=== PATIENT | male | born 1975 | race Caucasian/White ===

== ENCOUNTER 2025-03-26 01:28 | Day surgery (SDC) | payer BC, SELFPAY ==
--- OUTSIDE RECORDS SUMMARY | 2024-01-25 08:30 | XMS_ITS ---
Author Organization [facility] Address [address] [place] [address] Care Team Providers Care Foaming Machine Operator Name Role Phone Clifton Vance MD Unavailable DR. Clifton Vance Unavailable [phone] REASON FOR VISIT Mitul Nicolasvip Encounters Encounter Location Date Provider Diagnosis [facility] [address] [place] [address] 01/25/2024 Clifton Vance Plan Of Treatment No Information Progress Notes * Brady GUZMANeDOB:1975 ( 49 yo M)Acc No.[id number]:01/25/2024 Patient: Ke Jacobs Provider: Nicola Vance MD :1975 A ge:48 Y S ex:Male Date:01/25/2024 Address: [address] [facility] Subjective: * Chief Complaints: * [facility]: [facility] Vitals:* 01/12/2022 BP: 118/72 mm Hg, HR: 50 /mi n, Oxygen sat %: 99 %, Wt: 169.20 lbs, Wt-k.75 kg, Ht: 72.00 in, Ht-cm: 182.88 cm, BMI: 22.95 Index Plan: * Procedure Codes: 9 9199 NO SHOW Billing Information: * Procedure Codes: 45455 NO SHOW. * Electronic signature of DR. Clifton Vance MD on 03/26/2025 at 01:32 AM SUPERVISOR SHRIMP POND Sign off status: Pending * Provider: Nicola Vance MD Date: 0 01/25/2024 Generated for Merari deal/Anthony/Marisabel on: 1 05/26/2024 01:32 AM SUPERVISOR SHRIMP POND
--- OUTSIDE RECORDS SUMMARY | 2024-07-18 01:30 | XMS_ITS ---
Author Organization [facility] Address [address] [place] [address] Care Team Providers Care Laboratory Scientist Name Role Phone Clifton Vance MD Unavailable DR. Clifton Vance Unavailable [phone] REASON FOR VISIT CPE Vital Signs Blood pressure systolic 118 mm Hg 07/19/19 25 Blood pressure diastolic 82 mm Hg 025 Heart Rate 74 /min 07/18/2024 Height 72.00 in 07/18/2024 Weight 179.80 lbs 07/18/2024 BMI 24.39 kg/m2 07/18/2024 Oximetry 100 % 07/18/2024 Height-cm 182.88 cm 07/18/2024 Weight-kg 81.56 kg 07/18/2024 Encounters Encounter Location Date Provider Diagnosis [facility] [address] [place] [address] 07/18/2024 Clifton Vance Encounter for genera l adult medical examination without abnormal findings Z00.00 and Body mass index (BMI) 24.0-24.9, adult Z68.24 Assessments Encounter Date Diagnosis (ICD Code) Assessment Notes Treatment Notes Treatment Clinical Notes Section Notes 07/18/2024 Encounter for general adult medical examination without abnormal findings (ICD-10 - Z00.00) 07/18/2024 Body mass index (BMI) 24.0-24.9, adult (ICD-10 - Z68.24) Plan Of Treatment No Information History and Physical Notes * HPI (History of Present Illness) Category Sub-Category Detail Notes Category Not es Migrated HPI preventive exam :: Men's preventive visit. Patient is on a healthy diet. The patient has weight gain of 5 pounds (2.27 kilograms). Marital status: . Concern(s)/Requests Detail: rt wrist pain issues with lifting. Relevant history is positive for alcohol use. Relevant history is negative for passive vaping exposure Progress Notes * Brittany GUZMANOB:1975 ( 49 yo M)Acc No.[id number]:07/18/2024 Progress Notes Patient: Ke Jacobs Provider: Nicola Vance MD :1975 A ge:48 Y S ex:Male Date:07/18/2024 Address:[address] [place] [address] Subjective: * Chief Complaints: * C PE * HPI: M igrated HPI: preventive exam:: Men's preventive visit. Patient is on a healthy diet. The patient has weight gain of 5 pounds (2.27 kilograms). Marital status: . Concern(s)/Requests Detail: rt wrist pain issues with lifting. Relevant history is positive for alcohol use. Relevant history is negative for passive vaping exposure. * ROS: R OS System :Cardio :Claudication and Edema. -Negative, ROS System :GI :Change in stool pattern and Diarrhea. -Negative, ROS System :Allergic/Immuno :Environmental allergies and Food allergies. - Negative, ROS System :Constitutional :Weight gain (Amount: 5.00 lbs. (2.27 kgs.)). - Positive, ROS System :Constitutional :Fatigue. -Negative, ROS System :MS :Joint pain, Rt wrist pain. -Positive, ROS System :Respiratory :Cough and Known TB exposure. -Negative, ROS System :Neuro :Extremity weakness and Numbness in extremity. -Negative, ROS System :Endocrine :Heat intolerance and Polydipsia. -Negative, ROS System :Eyes :Eye discharge. -Negative, ROS System :ENMT :Otalgia. -Negative. Objective: * Vitals: B P: 118/82 mm Hg, HR: 74 /min, Oxygen sat %: 100 %, Wt: 179.80 lbs, Wt-k.56 kg, Ht: 72.00 in, Ht-cm: 182.88 cm, BMI: 24.39 Index. Past Vitals:* 01/12/2022 BP: 118/72 mm Hg, HR: 50 /mi n, Oxygen sat %: 99 %, Wt: 169.20 lbs, Wt-k.75 kg, Ht: 72.00 in, Ht-cm: 182.88 cm, BMI: 22.95 Index Assessment: * Assessment: 1. E ncounter for general adult medical examination without abnormal findings - Z00.00 ? 2 . B melita mass index (BMI) 24.0-24.9, adult - Z68.24 S pecify :Src Diagnosis Name: Body mass index [BMI] 24.0-24.9, adult Billing Information: * Visit Code: 04115 Preventive Care Est Pt. Age 40-64. * Electronic signature of DR. Clifton Vance MD on 03/26/2025 at 01:31 AM RESEARCH AND DEVELOPMENT DIRECTOR Sign off status: Pending * Provider: Nicola Vance MD Date: 0 07/18/2024 Generated for Merari deal/Anthony/Claudiosmitting on: 05/26/2024 01:31 AM RESEARCH AND DEVELOPMENT DIRECTOR
--- OUTSIDE RECORDS SUMMARY | 2024-09-27 05:12 | XMS_ITS ---
Author Organization [facility] Address [address] [place] [address] Care Team Providers Care Secretary Board Of Commissioners Name Role Phone Clifton Vance MD Unavailable Unavailable Migration, Provider Unavailable Unavailable REASON FOR VISIT TelEnc Encounters Encounter Location Date Provider Diagnosis [facility] [address] [place] [address] 09/27/2024 Provider Migration Plan Of Treatment No Information Progress Notes * Brady GUZMANErikOB:1975 ( 49 yo M)Acc No.[id number]:09/27/2024 Patient: Ke DILLON :1975 A ge:48 Y S ex:Male [place], [address] Subjective: * Chief Complaints: * T elEnc Objective: Past Vitals:* 01/12/2022 BP: 118/72 mm Hg, HR: 50 /mi n, Oxygen sat %: 99 %, Wt: 169.20 lbs, Wt-k.75 kg, Ht: 72.00 in, Ht-cm: 182.88 cm, BMI: 22.95 Index * * Date:
--- OUTSIDE RECORDS SUMMARY | 2025-01-17 03:00 | XMS_ITS ---
Author Organization [facility] Address [address] [facility] [place] [address] Care Team Providers Care Medical Office Supervisor Name Role Phone Rajiv BOYD, Clifton Armenta Unavailable DR. Clifton Vance Unavailable [phone] REASON FOR VISIT Pre Wellness Exam Encounters Encounter Location Date Provider Diagnosis [facility] [address] [facility] [place] [address] 01/17/2025 Clifton Vance Plan Of Treatment No Information Progress Notes * Brady GUZMANeDOB:1975 ( 49 yo M)Acc No.[id number]:01/17/2025 Patient: Ke Jacobs Provider: Nicloa Vance MD :1975 A ge:49 Y S ex:Male Date:01/17/2025 Address:[address] [facility] Subjective: * Chief Complaints: * P re Wellness Exam Plan: * Procedure Codes: 9 9199 NO SHOW Billing Information: * Procedure Codes: 59104 NO SHOW. * Electronic signature of DR. Clifton Vance MD on 03/26/2025 at 01:31 AM CUSTOMER SERVICE CONSULTANT Sign off status: Pending * Provider: Nicola Vance MD Date: 0 01/17/2025 Generated for Printi ng/Faxing/eTransmitting on: 1 05/26/2024 01:31 AM CUSTOMER SERVICE CONSULTANT
--- OUTSIDE RECORDS SUMMARY | 2025-01-31 07:30 | XMS_ITS ---
Author Organization [facility] Address [address] [facility] [place] [address] Care Team Providers Care Medical Service Technician Name Role Phone Clifton Vance MD Unavailable DR. Clifton Vance Unavailable [phone] REASON FOR VISIT Mitul Nicolasvip Encounters Encounter Location Date Provider Diagnosis [facility] [address] [place] [address] 01/31/2025 Clifton Vance Plan Of Treatment No Information Progress Notes * Brady GUZMANeDOB:1975 ( 49 yo M)Acc No.[id number]:01/31/2025 Patient: Ke Jacobs Provider: Nicola Vance MD :1975 A ge:49 Y S ex:Male Date:01/31/2025 Address:[address] [facility] [id number] Subjective: * Chief Complaints: * Sukumar Ferrarop * Electronic signature of DR. Clifton Vacne MD on 03/26/2025 at 01:31 AM CARCASS TRIMMER Sign off status: Pending * Provider: Nicola Vance MD Date: 0 01/31/2025 Generated for Merari deal/Anthony/eTransmitting on: 1 05/26/2024 01:31 AM CARCASS TRIMMER
--- OUTSIDE RECORDS SUMMARY | 2025-02-19 04:00 | XMS_ITS ---
Author Organization [facility] Address [address] [facility] [facility] [place] [address] Care Team Providers Care Lime Filter Operator Name Role Phone Clifton Vance MD Unavailable DR. Clifton Vance Unavailable [phone] REASON FOR VISIT Mitul Nicolasvip Encounters Encounter Location Date Provider Diagnosis [facility] [address] [place] [address] 02/19/2025 Clifton Vance Plan Of Treatment No Information Progress Notes * Brady GUZMANeDOB:1975 ( 49 yo M)Acc No.[id number]:02/19/2025 Patient: Ke Jacobs Provider: Nicola Vance MD :1975 A ge:49 Y S ex:Male Date:02/19/2025 Address:[address] [facility] Subjective: * Chief Complaints: * Sukumar Ferrarop * Electronic signature of DR. Clifton Vance MD on 03/26/2025 at 01:31 AM DISTRIBUTOR OF DIRECTORIES Sign off status: Pending * Provider: Nicola Vance MD Date: Generated for Merari deal/Anthony/eTransmitting on: 05/26/2024 01:31 AM DISTRIBUTOR OF DIRECTORIES
--- OUTSIDE RECORDS SUMMARY | 2025-02-26 04:30 | XMS_ITS ---
Author Organization [facility] Address [address] [facility] [place] [address] Care Team Providers Care Rn Lpn Lvn Name Role Phone Clifton Vance MD Unavailable DR. Clifton Vance Unavailable [phone] REASON FOR VISIT Mitul Nicolasvip Encounters Encounter Location Date Provider Diagnosis [facility] [address] [place] [address] 02/26/2025 Clifton Vance Plan Of Treatment No Information Progress Notes * Brady GUZMANeDOB:1975 ( 49 yo M)Acc No.[id number]:02/26/2025 Patient: Ke Jacobs Provider: Nicola Vance MD :1975 A ge:49 Y S ex:Male Date:02/26/2025 Address: [address] [facility] Subjective: * Chief Complaints: * Sukumar Ferrarop * Electronic signature of DR. Clifton Vance MD on 03/26/2025 at 01:31 AM SERVICE DELIVERY CONSULTANT Sign off status: Pending * Provider: Nicola Vance MD Date: Generated for Merari deal/Anthony/eTransmitting on: 05/26/2024 01:31 AM SERVICE DELIVERY CONSULTANT
--- OUTSIDE RECORDS SUMMARY | 2025-02-27 03:00 | XMS_ITS ---
Author Organization [facility] Address [address] [place] [address] Care Team Providers Care Hydrodynamicist Name Role Phone Clifton Vance MD Unavailable DR. Clifton Vance Unavailable [phone] REASON FOR VISIT Mitul Nicolasvip Encounters Encounter Location Date Provider Diagnosis [facility] [address] [place] [address] 02/27/2025 Clifton Vance Plan Of Treatment No Information Progress Notes * Brady GUZMANeDOB:1975 ( 49 yo M)Acc No.[id number]:02/27/2025 Patient: Ke Jacobs Provider: Nicola Vance MD :1975 A ge:49 Y S ex:Male Date:02/27/2025 Address: [address] [facility] Subjective: * Chief Complaints: * Sukumar Ferrarop * Electronic signature of DR. Clifton Vance MD on 03/26/2025 at 01:30 AM ORTHOTICS PROSTHETICS TECHNICIAN Sign off status: Pending * Provider: Nicola Vance MD Date: Generated for Merari deal/Anthony/eTransmitting on: 05/26/2024 01:30 AM ORTHOTICS PROSTHETICS TECHNICIAN
--- OUTSIDE RECORDS SUMMARY | 2025-03-03 03:00 | XMS_ITS ---
Author Organization [facility] Address [address] [place] [address] Care Team Providers Care Butcher Name Role Phone Clifton Vance MD Unavailable Unavailable Migration, Provider Unavailable Unavailable REASON FOR VISIT EMR-Km Encounters Encounter Location Date Provider Diagnosis [facility] [address] [place] [address] 03/03/2025 Provider Migration Plan Of Treatment Medication Medication Name Sig Start Date Stop Date Notes Cephalexin 500 MG Capsule take 1 capsule by oral route every 6 hours Oral 04/18/2020 07/08/2020 Xanax 1 MG Tablet take 1 tablet by oral route 4 times every day as needed for anxiety Oral 06/22/2023 09/27/2024 called into [facility] miscellaneous medication ORAL MISCELL MISCELL acutane for acne ORAL 03/17/2018 *Reorder from [facility] for eRx and Interaction Alerts* Winlevi 1 % topical cream 1 % CREAM (G) apply by topical route 2 times every day a thin layer to the affected area(s) TOPICAL 12/12/2022 08/24/2023 *Reorder from [facility] for eRx and Interaction Alerts* levoFLOXacin 500 MG Tablet take 1 tablet by oral route every 24 hours Oral 07/27/2019 07/08/2020 Albuterol Sulfate HFA 108 (90 Base) MCG/ACT Aerosol Solution inhale 2 puff by inhalation route every 4 - 6 hours prn Inhalation 01/25/2024 04/06/2024 Zoloft 25 MG Tablet TAKE 1 TABLET BY MOUTH DAILY Oral 06/22/2023 05/26/2024 - Ref: [id number] Cyclobenzaprine HCl 10 MG Tablet take 1 tablet by ORAL route 3 times every day as needed for muscle spasms Oral 02/07/2016 03/17/2018 Doxycycline Monohydrate 100 MG Capsule take 1 capsule by ORAL route every day Oral 07/08/2020 12/26/2020 Progress Notes * Brittany GUZMANOB:1975 ( 49 yo M)Acc No.[id number]:03/03/2025 Patient: Ke DILLON :1975 A ge:49 Y S ex:Male Address:[address] [place], [place] [id number] * Refills Stop Cephalexin Capsule, 500 MG, Oral, 28, take 1 capsule by oral route every 6 hours Stop Xanax Tablet, 1 MG, Oral, 120, take 1 by Oral route 3 times every day and as needed Stop Xanax Tablet, 1 MG, Oral, 90, take 1 tablet by oral route 3 times every day Stop Xanax Tablet, 1 MG, Oral, 320, take 1 tablet by oral route 4 times every day as needed for anxiety Stop Xanax Tablet, 1 MG, Oral, 360, take 1 tablet by oral route 4 times every day as needed for anxiety Stop Zoloft Tablet, 25 MG, Oral, 90, TAKE 1 TABLET BY MOUTH EVERY DAY Stop Zoloft Tablet, 25 MG, Oral, 90, TAKE 1 TABLET BY MOUTH DAILY Stop Doxycycline Monohydrate Capsule, 100 MG, Oral, 30, take 1 capsule by ORAL route every day Stop Xanax Tablet, 1 MG, Oral, 120, take 1 by Oral route 3 times every day and as needed Stop Xanax Tablet, 1 MG, Oral, 270, take 1 by Oral route 3 times every day and as needed Stop Xanax Tablet, 1 MG, Oral, 270, take 1 by Oral route 3 times every day and as needed Stop Xanax Tablet, 1 MG, Oral, 270, take 1 tablet by oral route 3 times every day as needed for anxiety Stop Xanax Tablet, 1 MG, Oral, 270, take 1 tablet by oral route 3 times every day as needed for anxiety Stop Xanax Tablet, 1 MG, Oral, 270, take 1 tablet by oral route 3 times every day as needed for anxiety Stop Zoloft Tablet, 25 MG, Oral, 90, Take 1 tablet by mouth every day Stop Zoloft Tablet, 25 MG, Oral, 90, TAKE 1 TABLET BY MOUTH EVERY DAY Stop Zoloft Tablet, 25 MG, Oral, 90, TAKE 1 TABLET BY MOUTH DAILY Stop Xanax Tablet, 1 MG, Oral, 120, take 1 by Oral route 3 times every day and as needed Stop Xanax Tablet, 1 MG, Oral, 270, take 1 tablet by oral route 3 times every day as needed for anxiety Stop Xanax Tablet, 1 MG, Oral, 120, take 1 tablet by oral route 4 times every day Stop Zoloft Tablet, 25 MG, Oral, 90, TAKE 1 TABLET BY MOUTH DAILY Stop Zoloft Tablet, 25 MG, Oral, 90, TAKE 1 TABLET BY MOUTH DAILY Stop Zoloft Tablet, 25 MG, Oral, 90, TAKE 1 TABLET BY MOUTH DAILY Stop miscellaneous medication ORAL MISCELL MISCELL, ORAL, acutane for acne Stop Winlevi 1 % topical cream CREAM (G), 1 %, TOPICAL, 180, apply by topical route 2 times every day a thin layer to the affected area(s) Stop Xanax Tablet, 1 MG, Oral, 120, take 1 by Oral route 3 times every day and as needed Stop Xanax Tablet, 1 MG, Oral, 90, take 1 tablet by oral route 3 times every day Stop Xanax Tablet, 1 MG, Oral, 260, take 1 tablet by oral route 4 times every day Stop Xanax Tablet, 1 MG, Oral, 360, take 1 tablet by oral route 4 times every day as needed for anxiety Stop Xanax Tablet, 1 MG, Oral, 260, take 1 tablet by oral route 4 times every day Stop Zoloft Tablet, 25 MG, Oral, 90, TAKE 1 TABLET BY MOUTH EVERY DAY Stop Zoloft Tablet, 25 MG, Oral, 90, TAKE 1 TABLET BY MOUTH DAILY Stop Xanax Tablet, 1 MG, Oral, 90, take 1 by Oral route 3 times every day and as needed Stop Xanax Tablet, 1 MG, Oral, 270, take 1 by Oral route 3 times every day and as needed Stop Xanax Tablet, 1 MG, Oral, 270, take 1 by Oral route 3 times every day and as needed Stop Xanax Tablet, 1 MG, Oral, 270, take 1 tablet by oral route 3 times every day as needed Stop Xanax Tablet, 1 MG, Oral, 270, take 1 tablet by oral route 3 times every day as needed for anxiety Stop Xanax Tablet, 1 MG, Oral, 270, take 1 tablet by oral route 3 times every day as needed for anxiety Stop Zoloft Tablet, 25 MG, Oral, 90, TAKE 1 TABLET BY ORAL ROUTE EVERY DAY Stop Zoloft Tablet, 25 MG, Oral, 90, TAKE 1 TABLET BY MOUTH EVERY DAY Stop levoFLOXacin Tablet, 500 MG, Oral, 30, take 1 tablet by oral route every 24 hours Stop Xanax Tablet, 1 MG, Oral, 90, take 1 by Oral route 3 times every day and as needed Stop Xanax Tablet, 1 MG, Oral, 90, take 1 tablet by oral route 3 times every day Stop Cyclobenzaprine HCl Tablet, 10 MG, Oral, 20, take 1 tablet by ORAL route 3 times every day as needed for muscle spasms Stop Xanax Tablet, 1 MG, Oral, 120, take 1 by Oral route 3 times every day and as needed Stop Xanax Tablet, 1 MG, Oral, 120, take 1 by Oral route 3 times every day and as needed Stop Xanax Tablet, 1 MG, Oral, 120, take 1 by Oral route 3 times every day and as needed Stop Xanax Tablet, 1 MG, Oral, 270, take 1 by Oral route 3 times every day and as needed Stop Xanax Tablet, 1 MG, Oral, 90, take 1 tablet by oral route 3 times every day Stop Xanax Tablet, 1 MG, Oral, 320, take 1 tablet by oral route 4 times every day as needed for anxiety Stop Xanax Tablet, 1 MG, Oral, 360, take 1 tablet by oral route 4 times every day as needed for anxiety Stop Zoloft Tablet, 25 MG, Oral, 90, TAKE 1 TABLET BY MOUTH EVERY DAY Stop Zoloft Tablet, 25 MG, Oral, 90, TAKE 1 TABLET BY MOUTH DAILY Stop Albuterol Sulfate HFA Aerosol Solution, 108 (90 Base) MCG/ACT, Inhalation, 17, inhale 2 puff by inhalation route every 4 - 6 hours prn Stop Cephalexin Capsule, 500 MG, Oral, 56, take 1 capsule by oral route every 6 hours Stop Xanax Tablet, 1 MG, Oral, 270, take 1 tablet by oral route 3 times every day as needed Stop Xanax Tablet, 1 MG, Oral, 270, take 1 tablet by oral route 3 times every day as needed for anxiety Stop Xanax Tablet, 1 MG, Oral, 270, take 1 tablet by oral route 3 times every day as needed for anxiety Stop Xanax Tablet, 1 MG, Oral, 90, take 1 tablet by oral route 3 times every day Stop Xanax Tablet, 1 MG, Oral, 90, take 1 tablet by oral route 3 times every day Stop Xanax Tablet, 1 MG, Oral, 320, take 1 tablet by oral route 4 times every day as needed for anxiety Stop Xanax Tablet, 1 MG, Oral, 120, take 1 tablet by oral route 4 times every day Stop Zoloft Tablet, 25 MG, Oral, 30, take 1 tablet by oral route every day Stop Zoloft Tablet, 25 MG, Oral, 30, TAKE 1 TABLET BY ORAL ROUTE EVERY DAY Stop Zoloft Tablet, 25 MG, Oral, 90, Take 1 tablet by mouth every day Stop Zoloft Tablet, 25 MG, Oral, 90, TAKE 1 TABLET BY MOUTH EVERY DAY Stop Zoloft Tablet, 25 MG, Oral, 90, TAKE 1 TABLET BY MOUTH EVERY DAY Stop Zoloft Tablet, 25 MG, Oral, 90, TAKE 1 TABLET BY MOUTH DAILY Subjective: * Chief Complaints: * E MR-Km * * Date:
--- OUTSIDE RECORDS SUMMARY | 2025-03-04 03:00 | XMS_ITS ---
Author Organization [facility] Address [address] [place] [address] Care Team Providers Care Rating Officer Name Role Phone Rajiv BOYD, Clifton Unavailable Unavailable Migration, Provider Unavailable Unavailable Allergies No Known Allergies REASON FOR VISIT EMR-[facility] Medications Medication SIG (Take, Route, Frequency, Duration) Notes Start Date End Date Status Zoloft 25 MG Tablet TAKE 1 TABLET BY MOUTH DAILY Oral - Ref: [id number] 05/26/2024 Active Xanax 1 MG Tablet take 1 tablet by oral route 4 times every day as needed for anxiety Oral called into [facility] 09/27/2024 Active Albuterol Sulfate HFA 108 (90 Base) MCG/ACT Aerosol Solution inhale 2 puff by inhalation route every 4 - 6 hours prn Inhalation 04/06/2024 Active Doxycycline Monohydrate 100 MG Capsule take 1 capsule by ORAL route every day Oral 12/26/2020 Active Winlevi 1 % topical cream 1 % CREAM (G) apply by topical route 2 times every day a thin layer to the affected area(s) TOPICAL *Reorder from [employer] for eRx and Interaction Alerts* 08/24/2023 Active Social History Social History Additional Details Category Social Info Options Details Migrated Social History Migrated Social History Have you used tobacco: N Encounters Encounter Location Date Provider Diagnosis [facility] [address] [place] [address] 03/04/2025 Provider Migration Plan Of Treatment No Information Progress Notes * THOMASBradyErikOB:1975 ( 49 yo M)Acc No.[id number]:03/04/2025 Patient: Ke DILLON :1975 A ge:49 Y S ex:Male Address:[address] [place] [address] Subjective: * Chief Complaints: * E Farida * Medical History: Disease : wisdom teeth , Disease Year : 2011 * Surgical History: Disease : Leg Infection, Sx_Procedure : Surgery * Hospitalization/Major Diagno stic Procedure: Hospital:[facility] , Disease:- Leg Infection, discharge date:[id number] * Social History: M igrated Social History: M igrated Social History: Have you used tobacco: N. * Medications: T akingAlbuterol Sulfate HFA 108 (90 Base) MCG/ACT Aerosol Solution inhale 2 puff by inhalation route every 4 - 6 hours prn Inhalation Zoloft 25 MG Tablet TAKE 1 TABLET BY MOUTH DAILY Oral , Notes to Pharmacist: - Ref: [id number] Monohydrate 100 MG Capsule take 1 capsule by ORAL route every day Oral Xanax 1 MG Tablet take 1 tablet by oral route 4 times every day as needed for anxiety Oral , Notes to Pharmacist: called into [facility] JsWinlevi 1 % topical cream 1 % CREAM (G) apply by topical route 2 times every day a thin layer to the affected area(s) TOPICAL , Notes to Pharmacist: *Reorder from [employer] for eRx and Interaction Alerts*Xanax 1 MG Tablet take 1 tablet by oral route 4 times every day Oral , Notes to Pharmacist: called sayra [phone] Albuterol Sulfate HFA 108 (90 Base) MCG/ACT Aerosol Solution inhale 2 puff by inhalation route every 4 - 6 hours prn Inhalation Taking Zoloft 25 MG Tablet TAKE 1 TABLET BY MOUTH DAILY Oral , Notes to Pharmacist: - Ref: [id number] Doxycycline Monohydrate 100 MG Capsule take 1 capsule by ORAL route every day Oral Taking Xanax 1 MG Tablet take 1 tablet by oral route 4 times every day as needed for anxiety Oral , Notes to Pharmacist: called into opt[facility]rx JsTaking Winlevi 1 % topical cream 1 % CREAM (G) apply by topical route 2 times every day a thin layer to the affected area(s) TOPICAL , Notes to Pharmacist: *Reorder from [facility] for eRx and Interaction Alerts*Taking Xanax 1 MG Tablet take 1 tablet by oral route 4 times every day Oral , Notes to Pharmacist: bill colbert [phone] * Allergies: N .K.D.A. * * Date:
[2025-03-13 09:43] VITALS: BMI 23.7
--- OUTSIDE RECORDS SUMMARY | 2025-03-15 01:36 | XMS_ITS | Continuity of Care Document ---
Author Organization [employer] Address [address] [place] [address] [address] [place] [address] Phone Care Team Providers Care Production Floater Name Role Phone Findeiss OTR/L, FRANCISCO, Cipriano Unavailable Unava ilable Procedures Procedure Date Therapeutic Activities Neuromuscular Re-Ed Therapeutic Exercise Manual Therapy Hot or Cold Pack Therapeutic Activities Neuromuscular Re-Ed Therapeutic Exercise Manual Therapy Hot or Cold Pack Therapeutic Activities Neuromuscular Re-Ed Therapeutic Exercise Manual Therapy Hot or Cold Pack Therapeutic Activities Neuromuscular Re-Ed Therapeutic Exercise Manual Therapy Hot or Cold Pack Therapeutic Activities Neuromuscular Re-Ed Therapeutic Exercise Hot or Cold Pack Therapeutic Activities Therapeutic Exercise Manual Therapy Hot or Cold Pack Therapeutic Activities Neuromuscular Re-Ed Therapeutic Exercise Manual Therapy Hot or Cold Pack Progress Note Therapeutic Activities Neuromuscular Re-Ed Manual Therapy Therapeutic Exercise Hot or Cold Pack Therapeutic Activities Neuromuscular Re-Ed Therapeutic Exercise Manual Therapy Hot or Cold Pack Therapeutic Activities Neuromuscular Re-Ed Therapeutic Exercise Manual Therapy Hot or Cold Pack Therapeutic Activities Neuromuscular Re-Ed Therapeutic Exercise Manual Therapy Hot or Cold Pack Therapeutic Activities Neuromuscular Re-Ed Therapeutic Exercise Manual Therapy Hot or Cold Pack Therapeutic Activities Neuromuscular Re-Ed Therapeutic Exercise Manual Therapy Hot or Cold Pack Therapeutic Activities Neuromuscular Re-Ed Therapeutic Exercise Manual Therapy Hot or Cold Pack Therapeutic Activities Neuromuscular Re-Ed Therapeutic Exercise Manual Therapy Hot or Cold Pack Therapeutic Activities Neuromuscular Re-Ed Therapeutic Exercise Manual Therapy Hot or Cold Pack Therapeutic Activities Neuromuscular Re-Ed Therapeutic Exercise Manual Therapy Hot or Cold Pack Therapeutic Activities Neuromuscular Re-Ed Therapeutic Exercise Manual Therapy Hot or Cold Pack Identified as not an unhealthy alcohol u ser Not identified as unhealthy alcohol via screening OT Evaluation Low Complexity Therapeutic Activities Neuromuscular Re-Ed Therapeutic Exercise Advance Directives Directive Yes / No Effective Date File Name No Information Encounters Encounter Description Practice Location Reason(s) For Visit Diagnoses Date Provider Providers Copied on Encounter [facility] [address] [address], [place], [place], [id number], tel:[phone] Cherie [place] No Information 0- 5 Findeiss Cipriano. . [facility] [address], [place], [place], [id number], tel:[phone] Cherie [place] No Information 5 Findeiss Cipriano. . Referring Provider: Luda Caceres [facility] [address], [place], [address]. tel:[phone] [place] [address] [address] [address], [place], [place], [id number], tel:[phone] [facility] [place] No Information 0- 5 Findeiss Cipriano. . Referring Provider: Luda Caceres [facility] [address]6B[address]12A, [place], [address]. tel:[phone] [place] [address] [address] [address], [place], [place], [id number], tel:[phone] [facility] [place] No Information 0 5 Findeiss Cipriano. . Referring Provider: Luda Caceres [facility] [address]6B[address]A, [place], [address]. tel:[phone] [place] [address] [address] [address], [place], [place], [id number], tel:[phone] [facility] [place] No Information 0 - 5 Findeiss Cipriano. . Referring Provider: Luda Caceres [facility] [address]A, [place], [address]. tel:[phone] [place] [address], [address], [place], [place], [id number], [place] tel:[phone] [facility] No Information Sep-2 5 Felix Celaya. . Referring Provider: Trevor Medina, [address] [facility] [address], [place], [address]. tel:[phone] [place] [address], [address], [place], [place], [id number], [place] tel:[phone] [facility] [place] No Information Sep-2 5 Findeiss Cipriano. . Referring Provider: Trevor Medina, Rosalina1 [facility] [address]A, [place], [address]. tel:[phone] [place] [address], [address], [place], [place], [id number], [place] tel:[phone] [facility] No Information Sep-2 5 Findeiss Cipriano. . Referring Provider: Trevor Medina, Rosalina1 [facility] [address]A, [place], [address]. tel:[phone] [place] [address], [address], [place], [place], [id number], [place] tel:[phone] [facility] No Information Sep-1 5 Findeiss Cipriano. . Referring Provider: Trevor Medina, Rosalina[address] [facility] [address]A, [place], [address]. tel:[phone] [place] [address], [address], [place], [place], [id number], [place] tel:[phone] [facility] No Information Sep- 5 Findeiss Cipriano. . Referring Provider: Trevor Medina, [address] [facility] [address], [place], [address]. tel:[phone] [place] [address], [place], [place], [address], [place] tel:[phone] Cherie [place] No Information Sep-1 0-202 5 Findeiss Cipriano. . Referring Provider: Trevor Medina, [address] [facility] [address], [place], [address]. tel:[phone] [facility], [address], [place], [place], [address], [place] tel:[phone] Cherie Lizama No Information Sep-0 8-202 5 Findeiss Cipriano. . Referring Provider: Trevor Medina, [address] [facility] [address]A, [place], [address]. tel:[phone] [place] [address] [address], [place], [place], [id number], [place] tel:[phone] Cherie Lizama No Information Sep-0 5- 5 Findeiss Cipriano. . Referring Provider: Trevor Medina, Rosalina1 [facility] [address]6B[address], [place], [address]. tel:[phone] [place] [address], [address], [place], [place], [id number], [place] tel:[phone] [facility] [place] No Information Sep-0 3-202 5 Findeiss Cipriano. . Referring Provider: Trevor Medina, [address] [facility] [address], [place], [address]. tel:[phone] [place] [address], [address], [place], [place], [address], [place] tel:[phone] [facility] [place] No Information Aug-2 8- 5 Findeiss Cipriano. . Referring Provider: Trevor Medina, [address] [facility] [address], [place], [address]. tel:[phone] [place] [address], [address], [place], [place], [address], [place] tel:[phone] Cherie Lizama No Information Aug-2 5-202 5 Findeiss Cipriano. . Referring Provider: Trevor Medina, [address] [facility] [address], [place], [address]. tel:[phone] [place] [address], [place], [place], [id number], tel:[phone] [facility] [place] No Information 5 Findeiss Cipriano. . Referring Provider: Trevor Medina, [address] [facility] [address], [place], [address]. tel:[phone] [place], [place] [address], [place], [place], [id number], tel:[phone] [facility] No Information 5 Findeiss Cipriano. . Referring Provider: Trevor Medina, [address] [facility] 6A[address]6B[address]12, [place], [address]. tel:[phone] [place] [address], [place], [place], [address], tel:[phone] [facility] No Information 5 Findeiss Cipriano. . Referring Provider: Trevor Medina, Rosalina1 [facility] 6A/6B/12, [place], [address]. tel:[phone] [place] [address], [id number], tel:[phone] [facility] No Information 5 Findeiss Cipriano. . Referring Provider: Trevor Medina, [address] [facility] [address]12A, [place], [address]. tel:[phone] Family History Family Member Type Diagnosis Age At Onset No Information Payers Payer name Insurance type Covered alliance party ID Authoriza jamar(s) [facility] TAM [id number] Social History Type Description Quantity Date Captured Comments Sex Male Smoking Status No Information Chief Complaint And Reason For Visit No Information Reason For Referral Reason For Referral No Information History Of Present Illness Encounter Date Complaint History Of Prese nt Illness No Information Functional Status Date Functional Assessmen t No Information Instructions Date Instruction Additional Infor mation No Information Assessments Type Assessment Date No Information Patient Care Teams Name Effective Dates (start - stop) Status Members No Information
--- OUTSIDE RECORDS SUMMARY | 2025-03-26 01:31 | XMS_ITS | Clinical Summary ---
Author Organization [facility] Address [address] [place] [address] Care Team Providers Care Sifter Operator Name Role Phone Clifton Vance MD Primary Care Provider [phone] Michael Preciado MD Unavailable Allergies Active Allergy Reactions Criticality Noted Date Comments Adhesive Rash,Edema Medium 03/02/2025 TEGADERM on face cause rash Medications ALPRAZolam (XANAX) 1 mg tablet Take 1 tablet (1 mg total) by mouth as needed for anxiety 3 Active sertraline (ZOLOFT) 25 mg tablet Take 1 tablet (25 mg total) by mouth every morning 3 Active ISOtretinoin (ABSORCA) 40 mg capsuleIndicati ons:acne Take 1 capsule (40 mg total) by mouth once a week On Wednesday Active TURMERIC ORALIndications :supplement Take 1 tablet by mouth every morning Active docosahexaenoic acid/epa (FISH OIL ORAL)Indication s:supplement Take 1 tablet/capsu le by mouth every morning Active ibuprofen (ADVIL,MOTRIN) 600 mg tablet Take 1 tablet (600 mg total) by mouth every 6 (six) hours 60 tablet 5 Active acetaminophen (TYLENOL) 325 mg tabletIndicatio ns:Pain Take 2 tablets (650 mg total) by mouth every 6 (six) hours 90 tablet 5 Active docusate sodium (COLACE) 100 mg capsule Take 1 capsule (100 mg total) by mouth 2 (two) times a day 60 capsule 5 Active meloxicam (MOBIC) 15 mg tablet Take 1/2 tablet two times daily. 30 tablet 5 Active cefadroxil (DURICEF) 500 mg capsuleIndicati ons:Bone/Joint Infection Take 2 capsules (1,000 mg total) by mouth 2 (two) times a day 156 capsule 5 04/11/20 Active oxyCODONE (ROXICODONE) 5 mg immediate release tabletIndicatio ns:Pain Take 1 tablet (5 mg total) by mouth every 4 (four) hours as needed for pain 10 tablet 5 03/03/20 Discontinue d(Stop Taking at Discharge) acetaminophen 500 mg capsuleIndicati ons:Pain Take 2 capsules (1,000 mg total) by mouth every 6 (six) hours for 15 days 5 03/18/20 Active Problems Problem Noted Date Diagnosed Date Wrist joint infection 02/28/2025 Osteomyelitis of right hand 02/28/2025 Assessment & Plan (03/03/2025 12:51 PM CDT): This is a [id number] right-hand dominant man with a history notable for a right wrist fracture from a fall in December 2023, which was further complicated by residual pain and limited range of motion necessitating surgical intervention involving right wrist scapholunate ligament repair, capsulodesis, and wrist pinning on 10/17/2024. This procedure was followed by a pain associated infection and ultimately required irrigation and debridement and pin removal on 12/07/2024. Operative cultures were positive for MSSA. He was initially treated with IV antibiotics while in the hospital and eventually discharged to complete a six weeks' course of cefadroxil that ended on 01/18/2025. 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 Underwent right wrist proximal row carpectomy. Operative samples are growing MSSA. Suspect recurrence of infection given retained small piece of hardware which has now been removed. Recommendations: Stop vancomycin (done). Start cefazolin 2 g every 8 hours (done) and continue while admitted. At the time of discharge can transition to oral cefadroxil 1 g every 12 hours to complete six weeks from 02/28. We will provide ID clinic follow-up. Assessment & Plan (03/01/2025 4:33 PM CDT): This is a [id number] right-hand dominant man with a history notable for a right wrist fracture from a fall in December 2023, which was further complicated by residual pain and limited range of motion necessitating surgical intervention involving right wrist scapholunate ligament repair, capsulodesis, and wrist pinning on 10/17/2024. This procedure was followed by a pain associated infection and ultimately required irrigation and debridement and pin removal on 12/07/2024. Operative cultures were positive for MSSA. He was initially treated with IV antibiotics while in the hospital and eventually discharged to complete a six weeks' course of cefadroxil that ended on 01/18/2025. 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 Underwent right wrist proximal row carpectomy. Operative samples are growing a Gram-positive cocci to be identified. Recommendations: Continue vancomycin 15 mg/kg every 12 hours for now. Please check a vancomycin trough level before the fourth dose. Stop cefepime (done). Follow-up operative cultures until Gram-positive cocci is identified. Suspect this is recurrence of MSSA driven by retained small piece of hardware. He has now undergone proximal row carpectomy and there does not seem to be any hardware left in the area. Anticipate oral antimicrobials at the time of discharge. No additional screening recommendations, screening for additional bloodborne or STI pathogens not appropriate at this time/already performed. Patient's insurance is [facility] by [facility] and will be referred to ID clinic. Right wrist joint infection 12/07/2024 Assessment & Plan (03/03/2025 12:51 PM CDT): This is a [id number] right-hand dominant man with a history notable for a right wrist fracture from a fall in December 2023, which was further complicated by residual pain and limited range of motion necessitating surgical intervention involving right wrist scapholunate ligament repair, capsulodesis, and wrist pinning on 10/17/2024. This procedure was followed by a pain associated infection and ultimately required irrigation and debridement and pin removal on 12/07/2024. Operative cultures were positive for MSSA. He was initially treated with IV antibiotics while in the hospital and eventually discharged to complete a six weeks' course of cefadroxil that ended on 01/18/2025. 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 Underwent right wrist proximal row carpectomy. Operative samples are growing MSSA. Suspect recurrence of infection given retained small piece of hardware which has now been removed. Recommendations: Stop vancomycin (done). Start cefazolin 2 g every 8 hours (done) and continue while admitted. At the time of discharge can transition to oral cefadroxil 1 g every 12 hours to complete six weeks from 02/28. We will provide ID clinic follow-up. Assessment & Plan (03/01/2025 4:33 PM CDT): This is a [id number] right-hand dominant man with a history notable for a right wrist fracture from a fall in December 2023, which was further complicated by residual pain and limited range of motion necessitating surgical intervention involving right wrist scapholunate ligament repair, capsulodesis, and wrist pinning on 10/17/2024. This procedure was followed by a pain associated infection and ultimately required irrigation and debridement and pin removal on 12/07/2024. Operative cultures were positive for MSSA. He was initially treated with IV antibiotics while in the hospital and eventually discharged to complete a six weeks' course of cefadroxil that ended on 01/18/2025. 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 Underwent right wrist proximal row carpectomy. Operative samples are growing a Gram-positive cocci to be identified. Recommendations: Continue vancomycin 15 mg/kg every 12 hours for now. Please check a vancomycin trough level before the fourth dose. Stop cefepime (done). Follow-up operative cultures until Gram-positive cocci is identified. Suspect this is recurrence of MSSA driven by retained small piece of hardware. He has now undergone proximal row carpectomy and there does not seem to be any hardware left in the area. Anticipate oral antimicrobials at the time of discharge. No additional screening recommendations, screening for additional bloodborne or STI pathogens not appropriate at this time/already performed. Patient's insurance is contracted by [facility] and will be referred to [facility] clinic. Assessment & Plan (12/09/2024 12:10 PM CDT): Yue Guzman is a 49 year old man with PMH of Right wrist fracture after falling from a tree in 12/2023 c/b residual pain and limited ROM s/p Right sapholunate repair, capsulodesis, and wrist pinning 10/17/2024 c/b pin-associated infection s/p Right wrist I&D and pin removal 12/07/2024. Went to OR 10/17/2024 for Right wrist scapholunate ligament repair, dorsal intercarpal ligament/Vishnu capsulodesis, and open reduction and pinning of the right scaphocapitate and scapholunate intervals. About 2 weeks afterwards, he felt a sharp sensation at the side of his wrist that felt like a pin was coming out and the cast was noted to be malodorous. At clinic follow-up on 12/04/2024, 1 of the pins was found to be extruding on the radial side with associated friable tissue and finger swelling. Due to concern for SSI of the radial side, he was started on TMP-SMX on 12/04 and then admitted and taken to OR 12/07 for R wrist I&D and removal of deep implant/buried K-wire. Intraoperatively noted that 1 of the K-wires had already extruded from the skin, no purulence but did note bloody fluid from the joint; areas around the deep pins concerning for pyogenic granuloma. All hardware was removed. Right wrist aspirate cx 12/07: MSSA Vancomycin and cefepime started 12/07 Recommendations - Discontinue IV vancomycin and IV cefepime - Start IV ceftriaxone 2g Q24 hours - Further recs pending culture results - Given concern for K-wire associated infection, plan on treating as hardware associated infection s/p hardware removal and osteomyelitis (6 weeks of antibiotics) - Anticipate IV antibiotics while inpatient and then transition to PO antibiotics at discharge - Monitor weekly CMP and CBC with diff while on IV antibiotics Assessment & Plan (12/07/2024 4:23 PM CDT): Yue Guzman is a 49 year old man with PMH of Right wrist fracture after falling from a tree in 12/2023 c/b residual pain and limited ROM s/p Right sapholunate repair, capsulodesis, and wrist pinning 10/17/2024 c/b pin-associated infection s/p Right wrist I&D and pin removal 12/07/2024. Went to OR 10/17/2024 for Right wrist scapholunate ligament repair, dorsal intercarpal ligament/Vishnu capsulodesis, and open reduction and pinning of the right scaphocapitate and scapholunate intervals. About 2 weeks afterwards, he felt a sharp sensation at the side of his wrist that felt like a pin was coming out and the cast was noted to be malodorous. At clinic follow-up on 12/04/2024, 1 of the pins was found to be extruding on the radial side with associated friable tissue and finger swelling. Due to concern for SSI of the radial side, he was started on TMP-SMX on 12/04 and then admitted and taken to OR 12/07 for R wrist I&D and removal of deep implant/buried K-wire. Intraoperatively noted that 1 of the K-wires had already extruded from the skin, no purulence but did note bloody fluid from the joint; areas around the deep pins concerning for pyogenic granuloma. Right wrist tissue cx 12/07: pending Right wrist aspirate cx 12/07: pending Vancomycin and cefepime started 12/07 Recommendations - Continue IV vancomycin 1g Q12 hours - check a trough before the 4th dose - Continue IV cefepime 2g Q12 hours - Further recs pending culture results - Given concern for K-wire associated infection, plan on treating as hardware associated infection s/p hardware removal and osteomyelitis (6 weeks of antibiotics) - Anticipate IV antibiotics while inpatient and then transition to PO antibiotics at discharge - Monitor twice weekly CMP and CBC with diff while on IV vancomycin and cefepime Scapholunate advanced collapse of right wrist Assessment & Plan (12/09/2024 12:10 PM CDT): Yue Guzman is a 49 year old man with PMH of Right wrist fracture after falling from a tree in 12/2023 c/b residual pain and limited ROM s/p Right sapholunate repair, capsulodesis, and wrist pinning 10/17/2024 c/b pin-associated infection s/p Right wrist I&D and pin removal 12/07/2024. Went to OR 10/17/2024 for Right wrist scapholunate ligament repair, dorsal intercarpal ligament/Vishnu capsulodesis, and open reduction and pinning of the right scaphocapitate and scapholunate intervals. About 2 weeks afterwards, he felt a sharp sensation at the side of his wrist that felt like a pin was coming out and the cast was noted to be malodorous. At clinic follow-up on 12/04/2024, 1 of the pins was found to be extruding on the radial side with associated friable tissue and finger swelling. Due to concern for SSI of the radial side, he was started on TMP-SMX on 12/04 and then admitted and taken to OR 12/07 for R wrist I&D and removal of deep implant/buried K-wire. Intraoperatively noted that 1 of the K-wires had already extruded from the skin, no purulence but did note bloody fluid from the joint; areas around the deep pins concerning for pyogenic granuloma. All hardware was removed. Right wrist aspirate cx 12/07: MSSA Vancomycin and cefepime started 12/07 Recommendations - Discontinue IV vancomycin and IV cefepime - Start IV ceftriaxone 2g Q24 hours - Further recs pending culture results - Given concern for K-wire associated infection, plan on treating as hardware associated infection s/p hardware removal and osteomyelitis (6 weeks of antibiotics) - Anticipate IV antibiotics while inpatient and then transition to PO antibiotics at discharge - Monitor weekly CMP and CBC with diff while on IV antibiotics Assessment & Plan (12/07/2024 4:23 PM CDT): Yue Guzman is a 49 year old man with PMH of Right wrist fracture after falling from a tree in 12/2023 c/b residual pain and limited ROM s/p Right sapholunate repair, capsulodesis, and wrist pinning 10/17/2024 c/b pin-associated infection s/p Right wrist I&D and pin removal 12/07/2024. Went to OR 10/17/2024 for Right wrist scapholunate ligament repair, dorsal intercarpal ligament/Vishnu capsulodesis, and open reduction and pinning of the right scaphocapitate and scapholunate intervals. About 2 weeks afterwards, he felt a sharp sensation at the side of his wrist that felt like a pin was coming out and the cast was noted to be malodorous. At clinic follow-up on 12/04/2024, 1 of the pins was found to be extruding on the radial side with associated friable tissue and finger swelling. Due to concern for SSI of the radial side, he was started on TMP-SMX on 12/04 and then admitted and taken to OR 12/07 for R wrist I&D and removal of deep implant/buried K-wire. Intraoperatively noted that 1 of the K-wires had already extruded from the skin, no purulence but did note bloody fluid from the joint; areas around the deep pins concerning for pyogenic granuloma. Right wrist tissue cx 12/07: pending Right wrist aspirate cx 12/07: pending Vancomycin and cefepime started 12/07 Recommendations - Continue IV vancomycin 1g Q12 hours - check a trough before the 4th dose - Continue IV cefepime 2g Q12 hours - Further recs pending culture results - Given concern for K-wire associated infection, plan on treating as hardware associated infection s/p hardware removal and osteomyelitis (6 weeks of antibiotics) - Anticipate IV antibiotics while inpatient and then transition to PO antibiotics at discharge - Monitor twice weekly CMP and CBC with diff while on IV vancomycin and cefepime Orthopedic hardware present 10/31/2024 Injury of right scapholunate ligament with no in stability 09/05/2024 Complex tear of medial menis cus of right knee as current injury 11/10/2022 Sprain of wrist 03/05/2011 Rupture of biceps tendon 02/26/2011 Encounters Date Type Department Care Team Description 03/14/2025 12:30 PM CDT Office Visit [facility] Medicine Orthopaedic Surgery [address] [place] [address] Hebert Strong MD Right wrist joint infection (HCC) (Primary Dx) 03/05/2025 Telephone [facility] [address] [place] [phone] Mine Zuñiga, [facility] 03/03/2025 Home Infusion [facility] Home [place] [address] Mauro Amayapaige GradyIvy, [facility] 03/02/2025 9:14 AM CDT - 03/02/2025 11:14 AM CDT Surgery [facility] Operating Room [facility] ([facility]) [address] [place] [id number] Carmen Hernandez MD INCISION AND DRAINAGE - RIGHT WRIST [[id number]] 03/02/2025 8:20 AM CDT Anesthesia Event [facility] Operating [facility] ([facility]) [address] [place] [address] Jose Bai DO Goblirsch, Thomas James, MD 03/02/2025 Documentation [facility] Scheduling [address] [place] [id number] Serenity Garcia [facility] IP to OP 02/28/2025 10:35 PM CDT Anesthesia Event [facility] Operating Room [address] [place] [address] Eulogio Cantor MD Summers, Stacie Lynn, CRNA 02/28/2025 8:25 PM CDT - 02/28/2025 11:22 PM CDT Surgery [facility] Operating Room [address] [place] [address] Hebert Strong MD INCISION AND DRAINAGE -RIGHT WRIST 02/28/2025 5:09 PM CDT - 03/03/2025 1:32 PM CDT Hospital Encounter [address] [phone] Aurora Arndt MD Brogan, David Micah, MD Right wrist joint infection (HCC) (Primary Dx); Osteomyelitis of right hand, unspecified type (HCC); Osteomyelitis of right radius, unspecified type (HCC); Illness, unspecified Discharge Disposition: Discharge to home or self care 02/28/2025 Telephone [facility] Medicine Orthopaedic Surgery [address] 1[address] [place] [address] Melissa Williamson ATC 02/27/2025 2:47 AM CDT - 02/27/2025 5:[address] [facility] Emergency Department [address] [place] [id number] Discharge Disposition: Left without being seen 02/05/2025 7:40 AM CDT Office Visit [facility] [address] [place] [address] Trevor Medina MD Scapholunate advanced collapse of right wrist (Primary Dx) 01/03/2025 9:40 AM CDT Office Visit [facility] [address] [place] [address] Carmen Warren NP Encounter for screening examination for sexually transmitted disease 12/25/2024 8:40 AM CDT Office Visit [facility] [address] 1[address] [place] [address] Trevor Medina MD Scapholunate advanced collapse of right wrist (Primary Dx) from Last 3 Months Surgical History Surgery Date Site/Laterality Comments KNEE SURGERY 05/17/2015 - 05/16/2016 Left for bacterial infection WISDOM TOOTH EXTRACTION 05/17/1998 - 05/16/1999 VASECTOMY 05/17/2014 - 05/16/2015 KNEE ARTHROSCOPY 12/04/2022 Right RIGHT ARTHROSCOPY KNEE PARTIAL MEDIAL MENISCECTOMY, CHONDROPLASTY WRIST SURGERY 10/17/2024 Right Scapholunate repair and wrist pinning Family History Medical History Relation Name Comments Anesthesia problems Neg Hx Social History Tobacco Use Types Packs/Day Years Used Date Smoking Tobacco: Never Passive Smoke Exposure: Never Smokeless Tobacco: Never Tobacco Cessation:Counseling Given: Not Answered Alcohol Use Standard Drinks/Week Comments Never 0 (1 standard drink = 0.6 oz pur e alcohol) AUDIT-C Answer Date Recorded Q1: How often do you have a drink containing alcohol? Never 02/28/2025 Q2: How many drinks containi ng alcohol do you have on a typical day when you are drinking? Patient does not drink Q3: How often do you have si x or more drinks on one occasion? Never 02/28/2025 Personal Safety Answer Date Recorded Have you ever been in or are you currently in a harmful physical or emotional relationship or is someone making you feel afraid or unsafe? 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 Gender Identity Male 09/29/2022 9:19 AM CDT Sexual Orientation Straight 09/29/2022 9: 19 AM CDT Last Filed Vital Signs Vital Sign Reading Time Taken Comments Blood Pressure 119/67 03/03/2025 11:57 AM CDT Pulse 95 03/03/2025 11:57 AM CDT Temperature 36.8 C (98.2 F) 03/03/2025 11:57 AM CDT Respiratory Rate 16 03/03/2025 11:57 AM CDT Oxygen Saturation 100% 03/03/2025 11:57 AM CDT Inhaled Oxygen Concentration - - Weight 77.1 kg (170 lb) 03/02/2025 3:50 AM CDT Height 177.8 cm (5' 10) 03/02/2025 3:50 AM CDT Body Mass Index 24.39 03/02/2025 3:50 AM CDT Plan of Treatment Health Maintenance Due Date Last Done Comments Colon Cancer Screening-Colonoscopy 1976 Depression Screening 1976 DTaP/Tdap/Td Vaccine (1 - Tdap) 11/23/1987 Regular Well Visit/Exam 18-64 1994 Pneumococcal vaccine <65 (1 of 2 - PCV) 11/23/1995 Covid-19 Vaccine (4 - 2024-2 6 season) 2025 05/30/2021, 09/27/2020, 08/09/2020 Influenza Vaccine (#1) 2025 2, 03/27/2021, 03/03/2020, Additional history exists Hepatitis B Screening Completed 12/07/2024 Hepatitis C Screening Completed 12/07/2024 Medical Devices Implanted Type Area Program Manager Device Identifier Shelf Expiration Date Model / Serial / Lot [employer] Corkscrew Fiberwire 2 Needle 3-0 [place] Fixation 1.35mm K Ar-1317ft - [id number] Implanted:Qty: 2 on 10/17/2024 by Trevor Medina MD at [facility] Right: Wrist [employer] [id number] 08/14/2029 AR-1317FT / / [id number] Explanted Type Area Program Manager Device Identifier Shelf Expiration Date Model / Serial / Lot [employer] K Wire Fix [place] Bth End Ss [id number] 1600-445ns - [id number] Explanted:Qty: 1 on 10/17/2024 by Trevor Medina MD at [facility] Right: Wrist [employer] DUP [id number] / / [employer] Wire .062in 4in Fxatn Stainless Steel [place] Both Ends 1600-462tns - [id number] Explanted:Qty: 2 on 10/17/2024 by Trevor Medina MD at [facility] Right: Wrist [employer] 1600-462TN S / / [employer] K Wire Fix [place] Bth End Ss [id number] 1600-445ns - [id number] Implanted:Qty: 2 on 10/17/2024 by Trevor Medina MD at [facility] Explanted:Qty: 2 on 12/07/2024 by Zoltan Jara MD at [facility] Right: Wrist [employer] DUP 1600-445NS / / [employer] Wire .062in 4in Fxatn Stainless Steel [place] Both Ends 1600-462tns - [id number] Implanted:Qty: 1 on 10/17/2024 by Trevor Medina MD at [facility] Explanted:Qty: 1 on 12/07/2024 by Zoltan Jara MD at [facility] Right: Wrist [employer] [id number] S / / Procedures Procedure Name Priority Date/Time Associated Diagnosis Comments VANCOMYCIN LEVEL TROUGH Routine 03/03/2025 3:42 AM CDT EGFR Routine 03/02/2025 10:27 PM CDT DIFFERENTIAL AUTO Routine 03/02/2025 10:27 PM CDT CBC WITH AUTO DIFFERENTIAL Routine 03/02/2025 10:27 PM CDT BASIC METABOLIC PANEL Routine 03/02/2025 10:27 PM CDT TISSUE AEROBIC AND ANAEROBIC CULTURE AND GRAM STAIN Routine 03/02/2025 9:04 AM CDT TISSUE AEROBIC AND ANAEROBIC CULTURE AND GRAM STAIN Routine 03/02/2025 8:59 AM CDT TISSUE AEROBIC AND ANAEROBIC CULTURE AND GRAM STAIN Routine 03/02/2025 8:59 AM CDT WY AN PROCEDURE PLACEHOLDER Routine 03/02/2025 8:44 AM CDT W[place] AN ELECTIVE SUPRAGLOTTIC AIRWAY Routine 03/02/2025 8:44 AM CDT WY DRAIN/INJECT SMALL JOINT/BURSA 03/02/2025 8:25 AM CDT Osteomyelitis of right hand, unspecified type (HCC) Case Notes 03/01@1320: move to follow first case in room K per Hari via phone. BR03/01/25, Sent email to OR resource nurse about blank dpc. NB03/01 - Per Carmen change to time sensitive 1 week, date should be 03/02. NB03/01 - Case msg confirming date as marked 24 and also 03/02 NB DIFFERENTIAL AUTO Routine 03/02/2025 3:5 7 AM CDT CBC WITH AUTO DIFFERENTIAL Routine 03/02/2025 3:57 AM CDT DIFFERENTIAL AUTO Routine 03/01/2025 4:4 0 AM CDT CBC WITH AUTO DIFFERENTIAL Routine 03/01/2025 4:40 AM CDT XR WRIST RIGHT 3 OR MORE VIEWS IP Routine 03/01/2025 4:18 AM CDT MYCOBACTERIOLOGY AFB CULTURE AND ACID-FAST STAIN Routine 03/01/2025 12:01 AM CDT MYCOLOGY (FUNGAL) CULTURE AND STAIN Routine 03/01/2025 12:01 AM CDT TISSUE AEROBIC AND ANAEROBIC CULTURE AND GRAM STAIN Routine 03/01/2025 12:01 AM CDT MYCOBACTERIOLOGY AFB CULTURE AND ACID-FAST STAIN Routine 02/28/2025 11:42 PM CDT MYCOLOGY (FUNGAL) CULTURE AND STAIN Routine 02/28/2025 11:42 PM CDT TISSUE AEROBIC AND ANAEROBIC CULTURE AND GRAM STAIN Routine 02/28/2025 11:42 PM CDT SURGICAL PATHOLOGY Routine 02/28/2025 11:36 PM CDT Right wrist joint infection (HCC) AEROBIC AND ANAEROBIC CULTURE AND GRAM STAIN Routine 02/28/2025 11:25 PM CDT MYCOLOGY (FUNGAL) CULTURE AND STAIN Routine 02/28/2025 11:25 PM CDT ANESTHESIA INTUBATION Routine 02/28/2025 10:51 PM CDT CARPECTOMY PROXIMAL ROW 02/28/2025 10:34 PM CDT Right wrist joint infection (HCC) INCISION AND DRAINAGE - UPPER EXTREMITY 02/28/2025 10:34 PM CDT Right wrist joint infection (HCC) SEPSIS LACTATE WITH REFLEX STAT 02/28/2025 6:54 PM CDT BLOOD CULTURE STAT 02/28/2025 6:54 PM CDT BLOOD CULTURE STAT 02/28/2025 6:54 PM CDT EGFR STAT 02/28/2025 6:48 PM CDT DIFFERENTIAL AUTO STAT 02/28/2025 6:4 8 PM CDT CRP (ACUTE PHASE) STAT 02/28/2025 6:4 8 PM CDT ERYTHROCYTE SEDIMENTATION RATE STAT 02/28/2025 6:48 PM CDT TYPE AND SCREEN STAT 02/28/2025 6:48 PM CDT APTT STAT 02/28/2025 6:48 PM CDT PROTIME-INR STAT 02/28/2025 6:48 PM CDT COMPREHENSIVE METABOLIC PANEL STAT 02/28/2025 6:48 PM CDT CBC WITH AUTO DIFFERENTIAL STAT 02/28/2025 6:48 PM CDT XR HAND RIGHT 3 OR MORE VIEWS ED 02/28/2025 4:59 PM CDT XR RADIUS ULNA RIGHT 2 VIEWS ED 02/28/2025 4:59 PM CDT XR WRIST RIGHT 3 OR MORE VIEWS ED 02/28/2025 4:58 PM CDT XR WRIST RIGHT 3 OR MORE VIEWS ED 02/27/2025 3:22 AM CDT HEPATITIS C ANTIBODY Routine 12/07/2024 9:58 PM CDT from Last 3 Months or Most Recently Relevant to Health Maintenance Results * (ABNORMAL) Vancomycin level trough Draw trough 30 minutes prior to 4th dose. (03/03/2025 3:42 AM CDT) [facility] Vancomycin trough 9.8(L) 10.0 - 20.0 mcg/mL Blood 03/03/2025 3:42 AM CDT 03/03/2025 4:32 AM CDT Narrative [facility] - 03/03/2025 5:02 AM CDT Draw trough 30 minutes prior to 4th dose. us Dallin Stubbs DO LAB BLOOD ORDERABLES Fin al Result Performing Organization Address City/[facility]/ZIP Co de Phone Number [facility] Department [place] [address] * eGFR (03/02/2025 10:27 PM CDT) eGFR 67 >=60 mL/min/1. 73 m2 Comment: Interpretive Data Reference Interval Normal >/= 90 mL/min/1.73m2 Mildly decreased* 60 - 89 mL/min/1.73m2 Mildly to moderately decreased 45 - 59 mL/min/1.73m2 Moderately to severely decreased 30 - 44 mL/min/1.73m2 Severely decreased 15 - 29 mL/min/1.73m2 Kidney Failure < 15 mL/min/1.73m2 *Relative to young adult level Estimated glomerular filtration rate is determined by the 2020 CKD-EPI equation recommended by the National Kid[employer] (A Unifying Approach to GFR Estimation: Recommendations of the NKF-ASK Task Force on Reassessing the Inclusion of Race in Diagnosing Kidney Disease, JASN 2020). The CKD-EPI equation should not be used for patients with unstable renal function and has not been validated in children and those over 70. Current interpretive data was last reviewed 2021. Blood 03/02/2025 10:2 7 PM CDT 03/02/2025 11:31 PM CDT us Michelle Rosenberg BOARD HAMMER OPERATOR LAB BLOOD ORDERABLES Final Result Performing Organization Address City/[facility]/ZIP Co de Phone Number [facility] Department [place] [address] * (ABNORMAL) Differential, auto (03/02/2025 10:27 PM CDT) Neutrophil abs 6.60(H) 1.50 - 6.50 K/cumm Imm gran abs 0.03 0.00 - 0.10 K/cumm [facility] Lymphocyte abs 0.63(L) 0.80 - 3.30 K/cumm [facility] Monocyte abs 0.48 0.20 - 0.80 K/cumm [facility] Eosinophil abs 0.00 0.00 - 0.50 K/cumm [facility] Basophil abs 0.02 0.00 - 0.10 K/cumm [facility] Neutrophil pct 85.0 % [facility] Comment: Interpretive Data Percent cell count reference ranges are not reported, since discordance with absolute values may lead to misinterpretation of CBC data. Current Interpretive Data was last revised on 2017. Imm gran pct 0.4 % [facility] Comment: Interpretive Data Percent cell count reference ranges are not reported, since discordance with absolute values may lead to misinterpretation of CBC data. Current Interpretive Data was last revised on 2017. Lymphocyte pct 8.1 % [facility] Comment: Interpretive Data Percent cell count reference ranges are not reported, since discordance with absolute values may lead to misinterpretation of CBC data. Current Interpretive Data was last revised on 2017. Monocyte pct 6.2 % [facility] Comment: Interpretive Data Percent cell count reference ranges are not reported, since discordance with absolute values may lead to misinterpretation of CBC data. Current Interpretive Data was last revised on 2017. Eosinophil pct 0.0 % [facility] Comment: Interpretive Data Percent cell count reference ranges are not reported, since discordance with absolute values may lead to misinterpretation of CBC data. Current Interpretive Data was last revised on 2017. Basophil pct 0.3 % [facility] Comment: Interpretive Data Percent cell count reference ranges are not reported, since discordance with absolute values may lead to misinterpretation of CBC data. Current Interpretive Data was last revised on 2017. Blood 03/02/2025 10:2 7 PM CDT 03/02/2025 11:32 PM CDT us Michelle Rosenberg NP LAB BLOOD ORDERABLES Final Result [facility] Department [place] [address] * (ABNORMAL) CBC with auto differential (03/02/2025 10:27 PM CDT) [facility] WBC 7.76 3.80 - 9.90 K/cumm Hgb 12.7(L) 13.0 - 17.5 g/dL [facility] Hct 36.1(L) 38.9 - 50.3 % [facility] Plt 254 150 - 400 K/cumm [facility] MPV 11.2 9.1 - 12.[address] [facility] RBC 4.23(L) 4.30 - 5.80 M/cumm [facility] MCV 85.3 81.3 - 96.[address] [facility] MCH 30.0 27.1 - 33.[address] [facility] MCHC 35.2 32.3 - 35.7 g/dL [facility] RDW CV 12.6 11.1 - 14.9 % [facility] RDW SD 39.2 35.7 - 48.[address] [facility] NRBC abs 0.00 0.00 - 0.01 K/cumm [facility] Blood 03/02/2025 10:2 7 PM CDT 03/02/2025 11:32 PM CDT us Michelle Rosenberg BOARD HAMMER OPERATOR LAB BLOOD ORDERABLES Final Result [facility] Department [place] [address] * (ABNORMAL) Basic metabolic panel (03/02/2025 10:27 PM CDT) [facility] Sodium 139 135 - 145 mmol/L Potassium, pl 4.3 3.3 - 4.9 mmol/L [facility] Chloride 98 97 - 110 mmol/L [facility] CO2 28 22 - 32 mmol/L [facility] Anion gap 13 2 - 15 mmol/L [facility] BUN 20 6 - 25 mg/dL [facility] Creatinine 1.31(H) 0.80 - 1.30 mg/dL [facility] Glucose 104 70 - 199 mg/dL [facility] Comment: Interpretive Data Fasting glucose >/= 126 mg/dl is diagnostic for diabetes. Fasting is defined as no caloric intake for at least 8 hours. Fasting glucose between 100 mg/dl to 125 mg/dl is diagnostic of prediabetes. In a patient with classic symptoms of hyperglycemia or hyperglycemic crisis, a random glucose >/= 200 mg/dl is diagnostic for diabetes. In the absence of unequivocal hyperglycemia, results should be confirmed by repeat testing. The classification and Diagnosis of Diabetes Diabetes Care 2021; 46: S19-S40. Current interpretive data was last revised 2022. Calcium 9.2 8.5 - 10.3 mg/dL [facility] Blood 03/02/2025 10:2 7 PM CDT 03/02/2025 11:31 PM CDT us Michelle Rosenberg BOARD HAMMER OPERATOR LAB BLOOD ORDERABLES Final Result [facility] Department [place] [address] * (ABNORMAL) Tissue aerobic and anaerobic culture and gram stain Tissue Wrist, right (03/02/2025 9:04AM CDT) Direct Specimen Exam Stain: No polymorphonuclear leukocytes seen. No organisms seen. Report Final Report: Rare Staphylococcus aureus For susceptibility results, refer to accession number [id number] on the Right Wrist Tissue culture from 02/28/2025. (.) [facility] Organism STAPHYLOCOCCUS AUREUS [facility] Tissue (Wrist, right) 03/02/2025 9:04 AM CDT 03/02/2025 10:57 AM CDT Narrative [facility] - 03/07/2025 11:10 AM CDT Right Wrist DRUJ Testing performed by [facility] ([phone]) Specimens submitted from normally sterile body sites will have all bacterial morphotypes identified. Specimens that contain grossly mixed manny and/or are from body sites that are not normally sterile will be examined for Staphylococcus aureus, Pseudomonas aeruginosa, beta-hemolytic strep, vancomycin-resistant Enterococcus, Bacteroides, Parabacteroides, Clostridium perfringens and fungus. If any of these are isolated, the organism will be reported. Current interpretive data was last revised on 2019. Hebert Strong MD LAB MICROBIOLOGY - GENERAL ORDERABLES Final Result Performing Organization Address [facility] Co de Phone Number [facility] [place] [address] * (ABNORMAL) Tissue aerobic and anaerobic culture and gram stain Tissue Wrist, right (03/02/2025 8:59AM CDT) Direct Specimen Exam Stain: No polymorphonuclear leukocytes seen. No organisms seen. Report Final Report: Rare Staphylococcus aureus For susceptibility results, refer to accession number [id number] on the Tissue culture from 02/28/2025 (.) [facility] Organism STAPHYLOCOCCUS AUREUS [facility] Tissue (Wrist, right) 03/02/2025 8:59 AM CDT 03/02/2025 10:58 AM CDT Narrative [facility] - 03/07/2025 11:08 AM CDT Testing performed by [facility] ([phone]) Specimens submitted from normally sterile body sites will have all bacterial morphotypes identified. Specimens that contain grossly mixed manny and/or are from body sites that are not normally sterile will be examined for Staphylococcus aureus, Pseudomonas aeruginosa, beta-hemolytic strep, vancomycin-resistant Enterococcus, Bacteroides, Parabacteroides, Clostridium perfringens and fungus. If any of these are isolated, the organism will be reported. Current interpretive data was last revised on 2019. Hebert Strong MD LAB MICROBIOLOGY - GENERAL ORDERABLES Final Result Performing Organization Address [facility] Co de Phone Number [facility] Department [place] [address] * (ABNORMAL) Tissue aerobic and anaerobic culture and gram stain Tissue Wrist, right (03/02/2025 8:59AM CDT) Direct Specimen Exam Stain: No polymorphonuclear leukocytes seen. No organisms seen. Report Final Report: Rare Staphylococcus aureus For susceptibility results, refer to accession number [id number] on the Tissue culture from 02/28/2025 (.) [facility] Organism STAPHYLOCOCCUS AUREUS [facility] Tissue (Wrist, right) 03/02/2025 8:59 AM CDT 03/02/2025 10:57 AM CDT Narrative [facility] - 03/07/2025 11:11 AM CDT Testing performed by [facility] ([phone]) Specimens submitted from normally sterile body sites will have all bacterial morphotypes identified. Specimens that contain grossly mixed manny and/or are from body sites that are not normally sterile will be examined for Staphylococcus aureus, Pseudomonas aeruginosa, beta-hemolytic strep, vancomycin-resistant Enterococcus, Bacteroides, Parabacteroides, Clostridium perfringens and fungus. If any of these are isolated, the organism will be reported. Current interpretive data was last revised on 2019. Hebert Strong MD LAB MICROBIOLOGY - GENERAL ORDERABLES Final Result [facility] Department [place] [address] * [place] AN ELECTIVE SUPRAGLOTTIC AIRWAY, [place] AN PROCEDURE PLACEHOLDER (03/02/2025 8:44 AM CDT) Narrative Jose Bai DO - 03/02/2025 8:44 AM CDT Jose Bai DO 03/02/2025 8:51 AM Airway Patient location: OR Urgency: elective Indications for airway management: anesthesia Difficult airway: no Staff: Placed by: Anesthesiologist: Jose Bai DO Emergent airway documentation: Risks and benefits discussed: yes Consent obtained: yes Consent given by: patient Airway prep: Preoxygenated: yes Patient position: sniffing Mask difficulty assessment: 0 - not attempted Spontaneous ventilation during airway: absent Sedation level during airway: GA Final airway details: Final airway type: supraglottic airway Final supraglottic airway: IGel SGA size: 4 Number of attempts: 1 Planned trial extubation: yes us Jose Bai DO ANESTHESIA ORDERABLES Edited Re sult - Final * (ABNORMAL) Differential, auto (03/02/2025 3:57 AM CDT) Neutrophil abs 8.84(H) 1.50 - 6.50 K/cumm Imm gran abs 0.05 0.00 - 0.10 K/cumm [facility] Lymphocyte abs 0.91 0.80 - 3.30 K/cumm [facility] Monocyte abs 0.58 0.20 - 0.80 K/cumm [facility] Eosinophil abs 0.02 0.00 - 0.50 K/cumm [facility] Basophil abs 0.02 0.00 - 0.10 K/cumm [facility] Neutrophil pct 84.8 % [facility] Comment: Interpretive Data Percent cell count reference ranges are not reported, since discordance with absolute values may lead to misinterpretation of CBC data. Current Interpretive Data was last revised on 2017. Imm gran pct 0.5 % [facility] Comment: Interpretive Data Percent cell count reference ranges are not reported, since discordance with absolute values may lead to misinterpretation of CBC data. Current Interpretive Data was last revised on 2017. Lymphocyte pct 8.7 % [facility] Comment: Interpretive Data Percent cell count reference ranges are not reported, since discordance with absolute values may lead to misinterpretation of CBC data. Current Interpretive Data was last revised on 2017. Monocyte pct 5.6 % [facility] Comment: Interpretive Data Percent cell count reference ranges are not reported, since discordance with absolute values may lead to misinterpretation of CBC data. Current Interpretive Data was last revised on 2017. Eosinophil pct 0.2 % [facility] Comment: Interpretive Data Percent cell count reference ranges are not reported, since discordance with absolute values may lead to misinterpretation of CBC data. Current Interpretive Data was last revised on 2017. Basophil pct 0.2 % [facility] Comment: Interpretive Data Percent cell count reference ranges are not reported, since discordance with absolute values may lead to misinterpretation of CBC data. Current Interpretive Data was last revised on 2017. Blood 03/02/2025 3:57 AM CDT 03/02/2025 4:36 AM CDT Dallin Stubbs DO LAB BLOOD ORDERABLES Fin al Result Performing Organization Address [facility] de Phone Number [facility] Department [place] [address] * (ABNORMAL) CBC with auto differential (03/02/2025 3:57 AM CDT) WBC 10.42(H) 3.80 - 9.90 K/cumm Hgb 12.7(L) 13.0 - 17.5 g/dL [facility] Hct 35.9(L) 38.9 - 50.3 % [facility] Plt 232 150 - 400 K/cumm [facility] MPV 11.1 9.1 - 12.[address] [facility] RBC 4.28(L) 4.30 - 5.80 M/cumm [facility] MCV 83.9 81.3 - 96.[address] [facility] MCH 29.7 27.1 - 33.[address] [facility] MCHC 35.4 32.3 - 35.7 g/dL [facility] RDW CV 12.5 11.1 - 14.9 % [facility] RDW SD 38.0 35.7 - 48.[address] [facility] NRBC abs 0.00 0.00 - 0.01 K/cumm [facility] Blood 03/02/2025 3:57 AM CDT 03/02/2025 4:36 AM CDT Dallin Stubbs DO LAB BLOOD ORDERABLES Fin al Result Performing Organization Address [facility]/ZIP Co de Phone Number [facility] Department of Laboratories [place], [place] [address] * (ABNORMAL) Differential, auto (03/01/2025 4:40 AM CDT) Neutrophil abs 8.60(H) 1.50 - 6.50 K/cumm Imm gran abs 0.03 0.00 - 0.10 K/cumm [facility] Lymphocyte abs 0.27(L) 0.80 - 3.30 K/cumm [facility] Monocyte abs 0.24 0.20 - 0.80 K/cumm [facility] Eosinophil abs 0.00 0.00 - 0.50 K/cumm [facility] Basophil abs 0.01 0.00 - 0.10 K/cumm [facility] Neutrophil pct 94.0 % [facility] Comment: Interpretive Data Percent cell count reference ranges are not reported, since discordance with absolute values may lead to misinterpretation of CBC data. Current Interpretive Data was last revised on 2017. Imm gran pct 0.3 % [facility] Comment: Interpretive Data Percent cell count reference ranges are not reported, since discordance with absolute values may lead to misinterpretation of CBC data. Current Interpretive Data was last revised on 2017. Lymphocyte pct 3.0 % [facility] Comment: Interpretive Data Percent cell count reference ranges are not reported, since discordance with absolute values may lead to misinterpretation of CBC data. Current Interpretive Data was last revised on 2017. Monocyte pct 2.6 % [facility] Comment: Interpretive Data Percent cell count reference ranges are not reported, since discordance with absolute values may lead to misinterpretation of CBC data. Current Interpretive Data was last revised on 2017. Eosinophil pct 0.0 % [facility] Comment: Interpretive Data Percent cell count reference ranges are not reported, since discordance with absolute values may lead to misinterpretation of CBC data. Current Interpretive Data was last revised on 2017. Basophil pct 0.1 % [facility] Comment: Interpretive Data Percent cell count reference ranges are not reported, since discordance with absolute values may lead to misinterpretation of CBC data. Current Interpretive Data was last revised on 2017. Blood 03/01/2025 4:40 AM CDT 03/01/2025 5:22 AM CDT Dallin Stubbs DO LAB BLOOD ORDERABLES Fin al Result Performing Organization Address [facility] de Phone Number [facility] Department [place] [address] * (ABNORMAL) CBC with auto differential (03/01/2025 4:40 AM CDT) WBC 9.15 3.80 - 9.90 K/cumm Hgb 13.1 13.0 - 17.5 g/dL [facility] Hct 36.4(L) 38.9 - 50.3 % [facility] Plt 202 150 - 400 K/cumm [facility] MPV 11.0 9.1 - 12.[address] [facility] RBC 4.33 4.30 - 5.80 M/cumm [facility] MCV 84.1 81.3 - 96.[address] [facility] MCH 30.3 27.1 - 33.[address] [facility] MCHC 36.0(H) 32.3 - 35.7 g/dL [facility] RDW CV 12.5 11.1 - 14.9 % [facility] RDW SD 38.3 35.7 - 48.[address] [facility] NRBC abs 0.00 0.00 - 0.01 K/cumm [facility] Blood 03/01/2025 4:40 AM CDT 03/01/2025 5:22 AM CDT Dallin Stubbs DO LAB BLOOD ORDERABLES Fin al Result Performing Organization Address [facility] de Phone Number [facility] Department [place] [address] * XR Wrist Right 3 or More Views (03/01/2025 4:18 AM CDT) Anatomical Region Laterality Modality Upper Extremities, Wrist Right Digital Radiography 03/01/2025 7:01 AM CDT Impressions 03/01/2025 7:01 AM CDT Interval proximal row carpectomy. Electronically signed by: Josias Cruz M.D. Narrative 03/01/2025 7:01 AM CDT XR WRIST RIGHT 3 OR MORE VIEWS HISTORY: Right wrist pain. FINDINGS: 3 views of the right wrist are obtained and compared with 02/28/2025. There is interval proximal row carpectomy. There is no acute fracture. Overlying splint material obscures osseous detail. An overlying soft tissue drain is present. Procedure Note Josias Cruz MD - 03/01/2025 XR WRIST RIGHT 3 OR MORE VIEWS HISTORY: Right wrist pain. FINDINGS: 3 views of the right wrist are obtained and compared with 02/28/2025. There is interval proximal row carpectomy. There is no acute fracture. Overlying splint material obscures osseous detail. An overlying soft tissue drain is present. IMPRESSION: Interval proximal row carpectomy. Electronically signed by: Josias Cruz M.D. Dallin Stubbs DO IMG XR PROCEDURES Final Result * (ABNORMAL) Tissue aerobic and anaerobic culture and gram stain Tissue Wrist, right (03/01/2025 12:01 AM CDT) Direct Specimen Exam Stain: No polymorphonuclear leukocytes seen. No organisms seen. Report Final Report: Few Staphylococcus aureus For susceptibility results, refer to accession number [id number] on the right wrist tissue culture from 02/28/2025 (.) [facility] Organism STAPHYLOCOCCUS AUREUS [facility] Tissue (Wrist, right) 03/01/2025 12:01 AM CDT 03/01/2025 3:52 AM CDT Narrative [facility] - 03/08/2025 2:10 PM CDT Infected Right Wrist #2 Testing performed by [facility] ([phone]) Specimens submitted from normally sterile body sites will have all bacterial morphotypes identified. Specimens that contain grossly mixed manny and/or are from body sites that are not normally sterile will be examined for Staphylococcus aureus, Pseudomonas aeruginosa, beta-hemolytic strep, vancomycin-resistant Enterococcus, Bacteroides, Parabacteroides, Clostridium perfringens and fungus. If any of these are isolated, the organism will be reported. Current interpretive data was last revised on 2019. us Hebert Strong MD LAB MICROBIOLOGY - GENERAL ORDERABLES Final Result [facility] Department [place] [address] * (ABNORMAL) Tissue aerobic and anaerobic culture and gram stain Tissue Wrist, right (02/28/2025 11:42 PM CDT) Direct Specimen Exam Stain: Abundant polymorphonuclear leukocytes seen. Rare Gram Positive Cocci Report Final Report: Abundant Staphylococcus aureus Methicillin susceptible (MSSA) by penicillin binding protein 2a (PBP2a) testing. (.) [facility] Organism STAPHYLOCOCCUS AUREUS [facility] Tissue (Wrist, right) 02/28/2025 11:42 PM CDT 03/01/2025 3:53 AM CDT Narrative [facility] - 03/08/2025 2:10 PM CDT Infected Right Wrist Testing performed by [facility] ([phone]) Specimens submitted from normally sterile body sites will have all bacterial morphotypes identified. Specimens that contain grossly mixed manny and/or are from body sites that are not normally sterile will be examined for Staphylococcus aureus, Pseudomonas aeruginosa, beta-hemolytic strep, vancomycin-resistant Enterococcus, Bacteroides, Parabacteroides, Clostridium perfringens and fungus. If any of these are isolated, the organism will be reported. Current interpretive data was last revised on 2019. Organism Antibiotic Method Susceptibility Staphylococcus aureus Doxycycline (ANUJA) INTERPRETATIO N Susceptible Staphylococcus aureus Linezolid (ANUJA) INTERPRETATIO N Susceptible Staphylococcus aureus Trimethoprim with Sulfamethoxazole (ANUJA) INTERPRETATION Susceptible Staphylococcus aureus Clindamycin (ANUJA) INTERPRETATIO N Susceptible Staphylococcus aureus Erythromycin (ANUJA) INTERPRETATIO N Susceptible Staphylococcus aureus Vancomycin (ANUJA) INTERPRETATIO N Susceptible Staphylococcus aureus Oxacillin (ANUJA) INTERPRETATIO N Susceptible Staphylococcus aureus Cefazolin (ANUJA) INTERPRETATIO N Susceptible Staphylococcus aureus Ceftriaxone (ANUJA) INTERPRETATIO N Susceptible us Hebert Strong MD LAB MICROBIOLOGY - GENERAL ORDERABLES Final Result [facility] Department [place] [address] * Surgical pathology (02/28/2025 11:36 PM CDT) Tissue (Cyst, bone) 02/28/2025 11:36 PM CDT Narrative PATHOLOGY [facility] - 03/07/2025 11:59 AM CDT EPIC results best viewed via link to PDF [facility] Gwendolyn Casanova Laboratory [place] [address] Note to Patients: This report may contain a detailed description of human tissue sent by a health care provider to the laboratory for pathologic evaluation. The content of this report is essential for diagnosis and may provide important critical findings. This information may be unfamiliar to patients to review without a medical professional present. It is advised that the patient review this report in the presence of a health care provider who can answer questions and explain the details. SURGICAL PATHOLOGY REPORT FINAL Patient Name: YUE GUZMAN Gender: Nicola : 1975 (Age: 49) Address: [address] [place] [address] Hospital #: [id number] Taken:02/28/2025 Received:03/01/2025 Reported: 03/07/2025 Patient Type: [facility] Inpatient Service: Ortho Location: [facility] OR POD 2 Physician(s): Mendy Tarango M.D. Diagnosis: Bone, lunate bone, incision and drainage - Acute osteomyelitis [facility]/03/07/2025 10:01 By this signature, I attest that the above diagnosis is based upon my personal examination of the slides(and/or other material indicated in the diagnosis). Jose Sin M.D. Report Electronically Reviewed and Signed Out By Jose Sin M.D. 03/07/2025 11:59:42 Asha Botaeng M.D. History: Patient is a 49-year-old man with a right wrist joint infection. Operative Procedure: incision and drainage right wrist, carpectomy proximal row Specimen(s) Received: A: Lunate bone Gross Description: Received in formalin labeled with patient identifiers and lunate bone is an irregular partially disrupted piece of purple torres bone (1.9 x 1.4 x 1.2 cm). Serial sections show gritty trabecular torres-pink bone. Firearms Specialist sections are submitted in cassette A1, post acid 1 decalcification. Jar 1 bao2/03/01/2025 08:58 PA(s): ALEJA Conde (ASCP)CM By this signature, I attest that the above diagnosis is based upon my personal examination of the slides(and/or other material). Addenda/Procedures The performance characteristics of some immunohistochemical stains, fluorescence in-situ hybridization tests and immunophenotyping by flow cytometry cited in this report (if any) were determined by the Surgical Pathology and Flow Cytometry Departments at [facility] as part of an ongoing quality assurance assistant program and in compliance with federally mandated regulations drawn from the Clinical Laboratory Improvement Act of 1988 (CLIA '88). Some of these tests rely on the use of analyte specific reagents and are subject to specific labeling requirements by the US Food and Drug Administration. Such diagnostic tests may only be performed in a facility that is certified by the Department of Health and Human Services as a high complexity laboratory under CLIA '88. The FDA has determined that such clearance or approval is not necessary. This test is used for clinical purposes. It should not be regarded as investigational or for research. Nevertheless, federal rules concerning the medical use of analyte specific reagents require that the following disclaimer be attached to the report: This test was developed and its performance characteristics determined by the Surgical Pathology and Flow Cytometry Departments of [facility]. It has not been cleared or approved by the U. S. Food and Drug Administration. IMAGES AND SCANNED DOCUMENTS, IF INCLUDED, ONLY VIEWABLE IN PDF VERSION OF REPORT us Hebert Strong MD LAB PATHOLOGY ORDERABLES F inal Result PATHOLOGY [facility] 3rd Floor [place], [place] [phone] * (ABNORMAL) Aerobic and anaerobic culture and gram stain Wound Wrist, right (02/28/2025 11:25 PM CDT) Direct Specimen Exam Stain: Abundant polymorphonuclear leukocytes seen. No organisms seen. Report Final Report: Few Staphylococcus aureus For susceptibility results, refer to accession number [id number] on the right wrist tissue culture [facility] 02[facility]28[facility]2025 (.) [facility] Organism STAPHYLOCOCCUS AUREUS [facility] Wound (Wrist, right) 02/28/2025 11:25 PM CDT 03/01/2025 3:47 AM CDT Narrative JAIME JIMENEZ - 03/08/2025 12:32 PM CDT Infected Right Wrist Specimen received on an ESwab. Testing performed by [facility] Microbiology Laboratory ([phone]) Specimens submitted from normally sterile body sites will have all bacterial morphotypes identified. Specimens that contain grossly mixed manny and/or are from body sites that are not normally sterile will be examined for Staphylococcus aureus, Pseudomonas aeruginosa, beta-hemolytic strep, vancomycin-resistant Enterococcus, Bacteroides, Parabacteroides, Clostridium perfringens and fungus. If any of these are isolated, the organism will be reported. Current interpretive data was last revised on 2019. us Hebert Strong MD LAB MICROBIOLOGY - GENERAL ORDERABLES Final Result JAIME [facility] One [facility] Department [place] [address] * Airway (02/28/2025 10:51 PM CDT) Narrative Baylee Fish MD - 02/28/2025 10:51 PM CDT Baylee Fish MD 02/28/2025 10:53 PM Airway Patient location: OR Urgency: elective Indications for airway management: anesthesia and airway protection Difficult airway: no Staff: Supervising provider: Eulogio Cantor MD Placed by: Resident: Baylee Fish MD Airway prep: Preoxygenated: yes Patient position: sniffing Mask difficulty assessment: 0 - not attempted Spontaneous ventilation during airway: absent Sedation level during airway: GA Final airway details: Final airway type: endotracheal airway Tube type: ETT ETT size: 7.5 mm Cuffed: yes Technique used for successful ETT placement: video laryngoscopy Devices/Methods used in placement: intubating stylet Insertion site: oral Blade type: Lauro Video blade type: Angulo Blade size: 4 Cormack-Lehane (video): grade I - full view of glottis Cuff inflated with: air ETT to lips: 23 cm Placement verified by: auscultation and CO2 detection Airway secured with: silk tape Number of attempts: 1 Planned trial extubation: yes us Baylee Fish MD ANESTHESIA ORDERABLES Edited Res ult - Final * Sepsis Lactate w/ Reflex (02/28/2025 6:54 PM CDT) Sepsis Lactate 1.7 0.7 - 2.0 mmol/L Blood 02/28/2025 6:54 PM CDT 02/28/2025 7:01 PM CDT us Santhosh Johnson MD LAB BLOOD ORDERABLES Final Result [facility] One [facility] Department [place] [address] * Blood culture Blood Peripheral (02/28/2025 6:54 PM CDT) Report Final Report: No growth Blood (Peripheral) 02/28/2025 6:54 PM CDT 02/28/2025 7:36 PM CDT Narrative [facility] - 03/05/2025 7:00 AM CDT From a different site than #1. Draw Blood cultures before administration of Antibiotics Collection->Peripheral 1. Blood cultures are incubated for 4 days on a continuously monitored blood culture system. The first report of a negative culture is issued within 24 hours of receipt of the specimen in the laboratory. 2. Positive culture results are reported as soon as they are detected. 3. The most important factor for detection of microbes in the setting of bloodstream infection is the volume of blood submitted for culture. Failure to collect an optimal blood volume can result in false negative blood cultures. 4. For pediatric patients, the recommended blood volume to collect follows a weight based strategy. See the electronic test catalog for collection instructions. 5. For positive blood cultures, a rapid molecular test may be performed for organism identification using the mckenna ePlex blood culture identification panel for gram positive (BCID-GP) and gram negative (BCID-GN) organisms. This nucleic acid amplification test detects microbial DNA in positive blood culture broth. This assay has been cleared by the [place] Food and Drug Administration and its performance characteristics have been verified by the [facility] Microbiology Laboratory. For questions about this culture, contact the Microbiology Laboratory at [phone]. Interpretive data was last revised on 24. us Santhosh Johnson MD LAB MICROBIOLOGY - GENERAL ORDERABLES Final Result [facility] One [facility] Department [place] [address] * Blood culture Blood Peripheral (02/28/2025 6:54 PM CDT) Report Final Report: No growth Blood (Peripheral) 02/28/2025 6:54 PM CDT 02/28/2025 7:35 PM CDT [facility] JAIME [facility] - 03/05/2025 7:00 AM CDT Draw Blood cultures before administration of Antibiotics Collection->Peripheral 1. Blood cultures are incubated for 4 days on a continuously monitored blood culture system. The first report of a negative culture is issued within 24 hours of receipt of the specimen in the laboratory. 2. Positive culture results are reported as soon as they are detected. 3. The most important factor for detection of microbes in the setting of bloodstream infection is the volume of blood submitted for culture. Failure to collect an optimal blood volume can result in false negative blood cultures. 4. For pediatric patients, the recommended blood volume to collect follows a weight based strategy. See the electronic test catalog for collection instructions. 5. For positive blood cultures, a rapid molecular test may be performed for organism identification using the mckenna ePlex blood culture identification panel for gram positive (BCID-GP) and gram negative (BCID-GN) organisms. This nucleic acid amplification test detects microbial DNA in positive blood culture broth. This assay has been cleared by the [place] Food and Drug Administration and its performance characteristics have been verified by the [facility] Microbiology Laboratory. For questions about this culture, contact the Microbiology Laboratory at [phone]. Interpretive data was last revised on 24. Santhosh Johnson MD LAB MICROBIOLOGY - GENERAL ORDERABLES Final Result JAIME JIMENEZ El[facility] Department [place] [address] * eGFR (02/28/2025 6:48 PM CDT) eGFR 72 >=60 mL/min/1. 73 m2 Comment: Interpretive Data Reference Interval Normal >/= 90 mL/min/1.73m2 Mildly decreased* 60 - 89 mL/min/1.73m2 Mildly to moderately decreased 45 - 59 mL/min/1.73m2 Moderately to severely decreased 30 - 44 mL/min/1.73m2 Severely decreased 15 - 29 mL/min/1.73m2 Kidney Failure < 15 mL/min/1.73m2 *Relative to young adult level Estimated glomerular filtration rate is determined by the 2020 CKD-EPI equation recommended by the National Kidney Foundation (A Unifying Approach to GFR Estimation: Recommendations of the NKF-ASK Task Force on Reassessing the Inclusion of Race in Diagnosing Kidney Disease, JASN 2020). The CKD-EPI equation should not be used for patients with unstable renal function and has not been validated in children and those over 70. Current interpretive data was last reviewed 2021. Blood 02/28/2025 6:48 PM CDT 02/28/2025 7:19 PM CDT us Santhosh Johnson MD LAB BLOOD ORDERABLES Final Result Performing Organization Address City/[facility]/ZIP Co de Phone Number JAIME JIMENEZ [facility] Department [place] [address] * (ABNORMAL) Differential, auto (02/28/2025 6:48 PM CDT) Neutrophil abs 8.38(H) 1.50 - 6.50 K/cumm Imm gran abs 0.05 0.00 - 0.10 K/cumm [facility] Lymphocyte abs 0.85 0.80 - 3.30 K/cumm [facility] Monocyte abs 0.84(H) 0.20 - 0.80 K/cumm [facility] Eosinophil abs 0.05 0.00 - 0.50 K/cumm [facility] Basophil abs 0.03 0.00 - 0.10 K/cumm [facility] Neutrophil pct 82.2 % [facility] Comment: Interpretive Data Percent cell count reference ranges are not reported, since discordance with absolute values may lead to misinterpretation of CBC data. Current Interpretive Data was last revised on 2017. Imm gran pct 0.5 % [facility] Comment: Interpretive Data Percent cell count reference ranges are not reported, since discordance with absolute values may lead to misinterpretation of CBC data. Current Interpretive Data was last revised on 2017. Lymphocyte pct 8.3 % [facility] Comment: Interpretive Data Percent cell count reference ranges are not reported, since discordance with absolute values may lead to misinterpretation of CBC data. Current Interpretive Data was last revised on 2017. Monocyte pct 8.2 % [facility] Comment: Interpretive Data Percent cell count reference ranges are not reported, since discordance with absolute values may lead to misinterpretation of CBC data. Current Interpretive Data was last revised on 2017. Eosinophil pct 0.5 % [facility] Comment: Interpretive Data Percent cell count reference ranges are not reported, since discordance with absolute values may lead to misinterpretation of CBC data. Current Interpretive Data was last revised on 2017. Basophil pct 0.3 % [facility] Comment: Interpretive Data Percent cell count reference ranges are not reported, since discordance with absolute values may lead to misinterpretation of CBC data. Current Interpretive Data was last revised on 2017. Blood 02/28/2025 6:48 PM CDT 02/28/2025 7:19 PM CDT us Santhosh Johnson MD LAB BLOOD ORDERABLES Final Result [facility] [place] [address] * (ABNORMAL) CBC with auto differential (02/28/2025 6:48 PM CDT) [facility] WBC 10.20(H) 3.80 - 9.90 K/cumm Hgb 14.2 13.0 - 17.5 g/dL [facility] Hct 40.4 38.9 - 50.3 % [facility] Plt 200 150 - 400 K/cumm [facility] MPV 11.4 9.1 - 12.[address] [facility] RBC 4.68 4.30 - 5.80 M/cumm [facility] MCV 86.3 81.3 - 96.[address] [facility] MCH 30.3 27.1 - 33.[address] [facility] MCHC 35.1 32.3 - 35.7 g/dL [facility] RDW CV 12.5 11.1 - 14.9 % [facility] RDW SD 39.4 35.7 - 48.[address] [facility] NRBC abs 0.00 0.00 - 0.01 K/cumm [facility] Blood 02/28/2025 6:48 PM CDT 02/28/2025 7:19 PM CDT us Santhosh Johnson MD LAB BLOOD ORDERABLES Final Result [facility] Department [place] [address] * aPTT (02/28/2025 6:48 PM CDT) [facility] aPTT 32 26 - 38 sec Comment: Interpretive Data Heparin therapeutic range: 66.0 - 100.0 seconds. Range based on correlation with therapeutic heparin activity range of 0.3 - 0.7 Units/mL. Current interpretive data was last revised on 2023. Blood 02/28/2025 6:48 PM CDT 02/28/2025 7:24 PM CDT Santhosh Johnson MD LAB BLOOD ORDERABLES Final Result Performing Organization Address City/[facility] Co de Phone Number [facility] [place] [address] * (ABNORMAL) Erythrocyte sedimentation rate (02/28/2025 6:48 PM CDT) Erythrocyte sedimentation rate 21(H) 1 - 15 mm/hr Blood 02/28/2025 6:48 PM CDT 02/28/2025 7:19 PM CDT Santhosh Johnson MD LAB BLOOD ORDERABLES Final Result Performing Organization Address [facility] [place] [address] * Protime-INR (02/28/2025 6:48 PM CDT) Pathologist [facility] PT 13.3 10.2 - 13.5 sec INR 1.18 0.90 - 1.[address] [facility] Comment: Interpretive data Oral anticoagulant therapeutic ranges: Venous thromboembolism prophylaxis or treatment: 2.0-3.0 CARDIOLOGY Standard range: 2.0-3.0 High-intensity range: 2.5-3.5 Refer to indication-specific guidelines for appropriate target ranges for prosthetic heart valve replacement. Current interpretive data was last revised on 2019. Blood 02/28/2025 6:48 PM CDT 02/28/2025 7:24 PM CDT Santhosh Johnson MD LAB BLOOD ORDERABLES Final Result Performing Organization Address [facility] [place] [address] * Type and screen (02/28/2025 6:48 PM CDT) Callum, indirect Negative ABO Rh O Positive [facility] Blood 02/28/2025 6:48 PM CDT 02/28/2025 7:14 PM CDT Narrative [facility] - 02/28/2025 8:08 PM CDT Has the patient had Daratumumab or Isatuximab in the past 6 months?->Unknown Santhosh Johnson MD LAB BLOOD BANK TEST ORDERAB LES Final Result Performing Organization Address [facility] Co de Phone Number [facility] [place] [address] * (ABNORMAL) CRP (acute phase) (02/28/2025 6:48 PM CDT) [facility] CRP 246.0(H) <=10.0 mg/L Blood 02/28/2025 6:48 PM CDT 02/28/2025 7:19 PM CDT Santhosh Johnson MD LAB BLOOD ORDERABLES Final Result Performing Organization Address [facility] Co de Phone Number [facility] [place] [address] * Comprehensive metabolic panel (02/28/2025 6:48 PM CDT) Pathologist [facility] Sodium 142 135 - 145 mmol/L Potassium, pl 4.0 3.3 - 4.9 mmol/L [facility] Chloride 103 97 - 110 mmol/L [facility] CO2 29 22 - 32 mmol/L [facility] Anion gap 10 2 - 15 mmol/L [facility] BUN 13 6 - 25 mg/dL [facility] Creatinine 1.24 0.80 - 1.30 mg/dL [facility] Glucose 94 70 - 199 mg/dL [facility] Comment: Interpretive Data Fasting glucose >/= 126 mg/dl is diagnostic for diabetes. Fasting is defined as no caloric intake for at least 8 hours. Fasting glucose between 100 mg/dl to 125 mg/dl is diagnostic of prediabetes. In a patient with classic symptoms of hyperglycemia or hyperglycemic crisis, a random glucose >/= 200 mg/dl is diagnostic for diabetes. In the absence of unequivocal hyperglycemia, results should be confirmed by repeat testing. The classification and Diagnosis of Diabetes Diabetes Care 202; 46: S19-S40. Current interpretive data was last revised 2022. Calcium 9.2 8.5 - 10.3 mg/dL [facility] Bilirubin, total 0.6 0.1 - 1.2 mg/dL [facility] Protein, pl 7.4 6.5 - 8.5 g/dL [facility] Albumin 4.0 3.5 - 5.0 g/dL [facility] Alk phos 93 40 - 130 Units/L [facility] ALT 28 7 - 55 Units/L [facility] AST 31 10 - 50 Units/L [facility] Blood 02/28/2025 6:48 PM CDT 02/28/2025 7:19 PM CDT Santhosh Johnson MD LAB BLOOD ORDERABLES Final Result [facility] One [facility] Department [place] [address] * XR Hand Right 3 or More Views (02/28/2025 4:59 PM CDT) Anatomical Region Laterality Modality Upper Extremities, Hand Right Computed Radiography 02/28/2025 5:29 PM CDT Impressions 02/28/2025 8:35 PM CDT Findings/impression: Right hand: Small anchors are again noted within the scaphoid. No acute fracture. There is extensive erosive/cystic changes throughout the carpal bones and distal radius, especially the scaphoid concerning for acute osteomyelitis. 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 There is significant soft tissue swelling noted around the right wrist. Right wrist: No acute fracture. Extensive erosive/cystic changes throughout the carpal bones and distal radius concerning for acute osteomyelitis. Findings of a nonunited scaphoid waist fracture with increase in place. Again noted is significant soft tissue swelling noted around the right wrist. Right radius and ulna: No acute fracture. Erosive changes throughout the carpal bones and distal radius concerning for acute osteomyelitis as described above. No right elbow joint effusion. Dictated by: Jay Cummings M.D. The radiology attending physician has personally reviewed this study, and had reviewed and/or edited this written report and agrees with it. Electronically signed by: James Méndez M.D. Narrative 02/28/2025 8:35 PM CDT EXAMINATION: XR WRIST RIGHT 3 OR MORE VIEWS, XR RADIUS ULNA RIGHT 2 VIEWS, XR HAND RIGHT 3 OR MORE VIEWS HISTORY: Right wrist pain for the past few days, patient reports increased swelling, redness, and 10 out of 10 pain COMPARISON: 02/27/2025 Procedure Note James Méndez MD - 02/28/2025 EXAMINATION: XR WRIST RIGHT 3 OR MORE VIEWS, XR RADIUS ULNA RIGHT 2 VIEWS, XR HAND RIGHT 3 OR MORE VIEWS HISTORY: Right wrist pain for the past few days, patient reports increased swelling, redness, and 10 out of 10 pain COMPARISON: 02/27/2025 IMPRESSION: Findings/impression: Right hand: Small anchors are again noted within the scaphoid. No acute fracture. There is extensive erosive/cystic changes throughout the carpal bones and distal radius, especially the scaphoid concerning for acute osteomyelitis. 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 There is significant soft tissue swelling noted around the right wrist. Right wrist: No acute fracture. Extensive erosive/cystic changes throughout the carpal bones and distal radius concerning for acute osteomyelitis. Findings of a nonunited scaphoid waist fracture with increase in place. Again noted is significant soft tissue swelling noted around the right wrist. Right radius and ulna: No acute fracture. Erosive changes throughout the carpal bones and distal radius concerning for acute osteomyelitis as described above. No right elbow joint effusion. Dictated by: Jay Cummings M.D. The radiology attending physician has personally reviewed this study, and had reviewed and/or edited this written report and agrees with it. Electronically signed by: James Méndez M.D. us Aurora Arndt MD IMG XR PROCEDURES Final Res ult * XR Radius Ulna Right 2 Views (02/28/2025 4:59 PM CDT) Anatomical Region Laterality Modality Upper Extremities, Forearm Right Compu abraham Radiography 02/28/2025 5:29 PM CDT Impressions 02/28/2025 8:35 PM CDT Findings/impression: Right hand: Small anchors are again noted within the scaphoid. No acute fracture. There is extensive erosive/cystic changes throughout the carpal bones and distal radius, especially the scaphoid concerning for acute osteomyelitis. 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 There is significant soft tissue swelling noted around the right wrist. Right wrist: No acute fracture. Extensive erosive/cystic changes throughout the carpal bones and distal radius concerning for acute osteomyelitis. Findings of a nonunited scaphoid waist fracture with increase in place. Again noted is significant soft tissue swelling noted around the right wrist. Right radius and ulna: No acute fracture. Erosive changes throughout the carpal bones and distal radius concerning for acute osteomyelitis as described above. No right elbow joint effusion. Dictated by: Jay Cummings M.D. The radiology attending physician has personally reviewed this study, and had reviewed and/or edited this written report and agrees with it. Electronically signed by: James Méndez M.D. Narrative 02/28/2025 8:35 PM CDT EXAMINATION: XR WRIST RIGHT 3 OR MORE VIEWS, XR RADIUS ULNA RIGHT 2 VIEWS, XR HAND RIGHT 3 OR MORE VIEWS HISTORY: Right wrist pain for the past few days, patient reports increased swelling, redness, and 10 out of 10 pain COMPARISON: 02/27/2025 Procedure Note James Méndez MD - 02/28/2025 EXAMINATION: XR WRIST RIGHT 3 OR MORE VIEWS, XR RADIUS ULNA RIGHT 2 VIEWS, XR HAND RIGHT 3 OR MORE VIEWS HISTORY: Right wrist pain for the past few days, patient reports increased swelling, redness, and 10 out of 10 pain COMPARISON: 02/27/2025 IMPRESSION: Findings/impression: Right hand: Small anchors are again noted within the scaphoid. No acute fracture. There is extensive erosive/cystic changes throughout the carpal bones and distal radius, especially the scaphoid concerning for acute osteomyelitis. 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 There is significant soft tissue swelling noted around the right wrist. Right wrist: No acute fracture. Extensive erosive/cystic changes throughout the carpal bones and distal radius concerning for acute osteomyelitis. Findings of a nonunited scaphoid waist fracture with increase in place. Again noted is significant soft tissue swelling noted around the right wrist. Right radius and ulna: No acute fracture. Erosive changes throughout the carpal bones and distal radius concerning for acute osteomyelitis as described above. No right elbow joint effusion. Dictated by: Jay Cummings M.D. The radiology attending physician has personally reviewed this study, and had reviewed and/or edited this written report and agrees with it. Electronically signed by: James Méndez M.D. Aurora Arndt MD IMG XR PROCEDURES Final Res ult * XR Wrist Right 3 or More Views (02/28/2025 4:58 PM CDT) Anatomical Region Laterality Modality Upper Extremities, Wrist Right Compute d Radiography 02/28/2025 5:29 PM CDT Impressions 02/28/2025 8:35 PM CDT Findings/impression: Right hand: Small anchors are again noted within the scaphoid. No acute fracture. There is extensive erosive/cystic changes throughout the carpal bones and distal radius, especially the scaphoid concerning for acute osteomyelitis. 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 There is significant soft tissue swelling noted around the right wrist. Right wrist: No acute fracture. Extensive erosive/cystic changes throughout the carpal bones and distal radius concerning for acute osteomyelitis. Findings of a nonunited scaphoid waist fracture with increase in place. Again noted is significant soft tissue swelling noted around the right wrist. Right radius and ulna: No acute fracture. Erosive changes throughout the carpal bones and distal radius concerning for acute osteomyelitis as described above. No right elbow joint effusion. Dictated by: Jay Cummings M.D. The radiology attending physician has personally reviewed this study, and had reviewed and/or edited this written report and agrees with it. Electronically signed by: James Méndez M.D. Narrative 02/28/2025 8:35 PM CDT EXAMINATION: XR WRIST RIGHT 3 OR MORE VIEWS, XR RADIUS ULNA RIGHT 2 VIEWS, XR HAND RIGHT 3 OR MORE VIEWS HISTORY: Right wrist pain for the past few days, patient reports increased swelling, redness, and 10 out of 10 pain COMPARISON: 02/27/2025 Procedure Note James Méndez MD - 02/28/2025 EXAMINATION: XR WRIST RIGHT 3 OR MORE VIEWS, XR RADIUS ULNA RIGHT 2 VIEWS, XR HAND RIGHT 3 OR MORE VIEWS HISTORY: Right wrist pain for the past few days, patient reports increased swelling, redness, and 10 out of 10 pain COMPARISON: 02/27/2025 IMPRESSION: Findings/impression: Right hand: Small anchors are again noted within the scaphoid. No acute fracture. There is extensive erosive/cystic changes throughout the carpal bones and distal radius, especially the scaphoid concerning for acute osteomyelitis. 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 There is significant soft tissue swelling noted around the right wrist. Right wrist: No acute fracture. Extensive erosive/cystic changes throughout the carpal bones and distal radius concerning for acute osteomyelitis. Findings of a nonunited scaphoid waist fracture with increase in place. Again noted is significant soft tissue swelling noted around the right wrist. Right radius and ulna: No acute fracture. Erosive changes throughout the carpal bones and distal radius concerning for acute osteomyelitis as described above. No right elbow joint effusion. Dictated by: Jay Cummings M.D. The radiology attending physician has personally reviewed this study, and had reviewed and/or edited this written report and agrees with it. Electronically signed by: James Méndez M.D. us Aurora Arndt MD IMG XR PROCEDURES Final Res ult * XR Wrist Right 3 or More Views (02/27/2025 3:22 AM CDT) Anatomical Region Laterality Modality Upper Extremities, Wrist Right Compute d Radiography 02/27/2025 4:06 AM CDT Narrative 02/27/2025 4:10 AM CDT EXAM DESCRIPTION: XR WRIST RIGHT 3 OR MORE VIEWS REASON FOR STUDY: pain Pt has been in PT doing good for 14 months and today while working on his computer he had a sudden onset of severe pain, hx of multiple surgeries TECHNIQUE: Three radiographic views of the right wrist . COMPARISON: Plain films of the right wrist of December 06, 2024. FINDINGS: BONES: There is no cortical discontinuity or trabecular irregularity to suggest acute fracture. There is extensive cystic versus erosive change seen through out the carpal bones. Small anchors remain in place, unchanged from previous. There is significant stable dorsal tilt and volar subluxation of the lunate, unchanged. SOFT TISSUES: There is circumferential soft tissue swelling. 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 THIS IS AN ELECTRONICALLY VERIFIED FINAL REPORT 02/27/2025 4:10 AM - Electronically signed by Jemima Flores M.D. SN: SN Report ID: [id number] Reading Location: [id number] Procedure Note Jemima Flores MD - 02/27/2025 EXAM DESCRIPTION: XR WRIST RIGHT 3 OR MORE VIEWS REASON FOR STUDY: pain Pt has been in PT doing good for 14 months and today while working on his computer he had a sudden onset of severe pain, hx of multiple surgeries TECHNIQUE: Three radiographic views of the right wrist . COMPARISON: Plain films of the right wrist of December 06, 2024. FINDINGS: BONES: There is no cortical discontinuity or trabecular irregularity to suggest acute fracture. There is extensive cysticversus erosive change seen through out the carpal bones. Small anchors remain in place, unchanged from previous. There is significant stable dorsal tiltand volar subluxation of the lunate, unchanged. SOFT TISSUES: There is circumferential soft tissue swelling. 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 THIS IS AN ELECTRONICALLY VERIFIED FINAL REPORT 02/27/2025 4:10 AM - Electronically signed by Jemima Flores M.D. SN: SN Report ID: [id number] Reading Location: [id number] us Kelly Yan MD IMG XR PROCEDURES Final Result * Hepatitis C antibody Blood (12/07/2024 9:58 PM CDT) Hep C Ab Nonreactive Nonreactive Comment:Antibodies to HCV no t detected. Does NOT exclude the possibility of recent exposure to HCV. Current interpretive data was last revised on 22 Blood 12/07/2024 9:58 PM CDT 12/07/2024 11:38 PM CDT us Michelle Rosenberg NP LAB MICROBIOLOGY - GENERAL ORDERABLES Final Result Performing Organization Address City/State/[facility] Co de Phone Number [facility] Department [place] [address] from Last 3 Months or Most Recently Relevant to Health Maintenance Insurance Tie Society OOS Tie Society OOS Advance Directives For more information, please contact: [phone] * Full Code (Latest Code Status on File) Date Activated Date Inactivated Comments 03/01/2025 2:07 AM 03/03/2025 5:37 PM * Full Code Date Activated Date Inactivated Comments 12/07/2024 1:32 PM 12/11/2024 5:41 PM Care Teams Sifter Operator Relationship Specialty Start Date End Date Clifton Vance MD PCP - General Internal Medicine 09/29/22 Michael Preciado MD [address] [place] [address] Consulting Physician Infectious Diseases 03/03/25
--- OUTSIDE RECORDS SUMMARY | 2025-03-26 01:31 | XMS_ITS | Clinical Summary ---
Author Organization [facility] Address [address] [place] [id number] Care Team Providers Care X Ray Tech Name Role Phone Clifotn Vance MD Primary Care Provider [phone] Immunizations Immunization Administration Dates Next Due MODERNA COVID-19 (12+) MRNA, LNP-S, PF, 100 MCG/ 0.5 ML DOSE 09/27/2020,08/09/2020 Social History Tobacco Use Types Packs/Day Years Used Date Smoking Tobacco: Never Assessed Sex and Gender Information Value Date Recorded Sex Assigned at Not on file Legal Sex Male 8:09 PM CDT Gender Identity Not on file Sexual Orientation Not on file Plan of Treatment Health Maintenance Due Date Last Done Comments Colorectal Cancer Screening Colonoscopy (10 Years) 1976 Annual Physical 11/23/1979 Hepatitis C 1994 DTaP, Tdap and Td Vaccines ( 1 - Tdap) 11/23/1995 Hepatitis B Vaccines (1 of 3 - 19+ 3-dose series) 11/23/1995 COVID-19 Vaccine ( - 2024-2 6 season) 2025 09/27/2020, 08/09/2020 Influenza Adult (#1) 2025 Hepatitis A Vaccines Aged Out No long er eligible based on patient's age to complete this topic Meningococcal B Vaccine Aged Out No l onger eligible based on patient's age to complete this topic Meningococcal Vaccine Aged Out No dale ines eligible based on patient's age to complete this topic Pneumococcal Vaccine: Pediatrics (0 to 5 Years) and At-Risk Patients (6 to 49 Years) Aged Out No longer eligible b ased on patient's age to complete this topic RSV Immunizations Under 20 Months Aged Out No longer eligible b ased on patient's age to complete this topic Insurance [facility] Care Teams X Ray Tech Relationship Specialty Start Date End Date Clifton Vance MD [address] [address] PCP - General INTERNAL MEDICINE 01/07/24
--- OUTSIDE RECORDS SUMMARY | 2025-03-26 01:32 | XMS_ITS | Encounter Summary ---
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 Historical Provider Final Res ult documented in this encounter Visit Diagnoses Not on filedocumented in this encounter Care Teams Linux Unix System Administrator Relationship Specialty Start Date End Date Clifton Vance MD PCP - General Internal Medicine 09/29/22 Mcihael Preciado MD [address] [place] [address] Consulting Physician Infectious Diseases 03/03/25 documented as of this encounter
--- OUTSIDE RECORDS SUMMARY | 2025-03-26 01:32 | XMS_ITS | Encounter Summary ---
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 Historical Provider Final Res ult documented in this encounter Visit Diagnoses Not on filedocumented in this encounter Care Teams Pipeline Engineer Relationship Specialty Start Date End Date Clifton Vance MD PCP - General Internal Medicine 09/29/22 Michael Preciado MD [address] [place] [address] Consulting Physician Infectious Diseases 03/03/25 documented as of this encounter
--- OUTSIDE RECORDS SUMMARY | 2025-03-26 01:32 | XMS_ITS | Encounter Summary ---
Author Organization [facility] Facility Care Team Providers Care Rotary Dryer Operator Name Role Phone Clifton Vance MD Primary Care Provider [phone] Michael Preciado MD Unavailable Encounter Details Date Type Department Care Team (Latest Contact Info) Description 11/21/2015 Orders Only [facility] CLINCONV ProviderStaci MD [address] [place] [address] Social History Tobacco Use Types Packs/Day Years Used Date Smoking Tobacco: Never Sex and Gender Information Value Date Recorded Sex Assigned at Not on file Legal Sex Male 9:14 AM DIRECT SERVICE PROVIDER Gender Identity Male 09/29/2022 9:19 AM CDT Sexual Orientation Straight 09/29/2022 9: 19 AM CDT documented as of this encounter Plan of Treatment Not on file documented as of this encounter Procedures Procedure Name Priority Date/Time Associated Diagnosis Comments SCAN - LABS 11/25/2015 12:00 AM CDT documented in this encounter Results * SCAN - LABS (11/25/2015 12:00 AM CDT) Narrative 11/25/2015 12:00 AM CDT Ordered by an unspecified provider. Historical Provider Final Res ult documented in this encounter Visit Diagnoses Not on filedocumented in this encounter Care Teams Rotary Dryer Operator Relationship Specialty Start Date End Date Clifton Vance MD PCP - General Internal Medicine 09/29/22 Michael Preciado MD [address] [place] [address] Consulting Physician Infectious Diseases 03/03/25 documented as of this encounter
--- OUTSIDE RECORDS SUMMARY | 2025-03-26 01:32 | XMS_ITS | Patient Health Record ---
Author Organization [employer] [facility] Address [address] [place] [address] Care Team Providers Care Live In Caregiver Name Role Phone Clifton Vance MD Unavailable Unavailable DR. Clifton Vance Unavailable [phone] Migration, Provider Unavailable Unavailable Allergies No Known Allergies Reason For Referral No Information Medications Medication SIG (Take, Route, Frequency, Duration) Notes Start Date End Date Status Zoloft 25 MG Tablet TAKE 1 TABLET BY MOUTH DAILY Oral - Ref: [id number] 05/26/2024 Active Xanax 1 MG Tablet take [...] to the affected area(s) TOPICAL *Reorder from [employer] for eRx and Interaction Alerts* 08/24/2023 Active Immunizations Vaccine Route Administration Date Status Comme nts Influenza, quadrivalent, spl it, preservative free, 3 years or older Unknown 02/22/2016 Administered schnucks Influenza, quadrivalent, spl it, preservative free, 3 years or older Unknown 04/21/2017 Administered Schnucks Social History Social History Additional Details Category Social Info Options Details Migrated Social History Migrated Social History Have you used tobacco: N Vital Signs Heart Rate 74 /min 07/18/2024 Height-cm 182.88 cm 07/18/2024 Oximetry 100 % 07/18/2024 Blood pressure diastolic 82 mm Hg 07/18/2024 Weight-kg 81.56 kg 07/18/2024 Height 72.00 in 07/18/2024 Blood pressure systolic 118 mm Hg 07/18/2024 Weight 179.80 lbs 07/18/2024 BMI 24.39 kg/m2 07/18/2024 Encounters Encounter Location Date Provider Diagnosis [address] [address] 07/18/2024 Clifton Vance Encounter for general adult medical examination without abnormal findings Z00.00 and Body mass index (BMI) 24.0-24.9, adult Z68.[address] [address] 01/17/2025 Clifton Vance [address] [address] 09/27/2024 Provider Migration [address] [address] 03/03/2025 Provider Migration [address] [address] 03/04/2025 Provider Migration Assessments Encounter Date Diagnosis (ICD Code) Assessment Notes Treatment Notes Treatment Clinical Notes Section Notes 07/18/2024 Encounter for general adult medical examination without abnormal findings (ICD-10 - Z00.00) 07/18/2024 Body mass index (BMI) 24.0-24.9, adult (ICD-10 - Z68.24) Plan Of Treatment No Information Insurance Providers Payer Name Payer Address Payer Phone Subscriber Number Group Number Insured Name Patient Relationship to Insured Coverage Start Date Coverage End Date [employer] [address] [place] [address] [id number] Ke Mcgarry Self - patient is the insured [facility] [address] [address] [place] [address] [id number] Ke Mcgarry Self - patient is the insured Health Plans [facility] [address] [place] [address] [id number] Ke Mcgarry Self - patient is the insured [facility] [employer] [address] [place] [address] [id number] Ke Mcgarry Self - patient is the insured [facility] [address] [address] [place] [address] [id number] Ke Mcgarry Self - patient is the insured Medical (General) History Surgical History Surgery Date(Month/Year) Disease : Leg Infection, Sx_Procedure : Surgery Hospitalization History Reason Date(Month/Year) Hospital:-[facility] , Disease:- Leg Infectio n, discharge date:-[id number]
--- OUTSIDE RECORDS SUMMARY | 2025-03-26 01:32 | XMS_ITS | Encounter Summary ---
Author Organization 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 Historical Provider Final Res ult documented in this encounter Visit Diagnoses Not on filedocumented in this encounter Care Teams Customer Leader Relationship Specialty Start Date End Date Clifton Vance MD PCP - General Internal Medicine 09/29/22 Michael Preciado MD [address] [place] [address] Consulting Physician Infectious Diseases 03/03/25 documented as of this encounter
[2025-03-26 09:30] VITALS: BP 108/56; PULSE 59; RESP 20; TEMP 36.1; O2SAT 100; BMI 24.2
[2025-03-26] MEDS: LACTATED RINGERS 1,000 ML 150 ML IV CONT (09:46)
--- NOTE | 2025-03-26 09:49 | P.PNAN_ITS ---
Anes - Initial Pre Proc Eval Procedure: Operation Date: 03/26/25 10:30 Proposed Procedures p Screening Colonoscopy - Lambert Saucedo MD Date/Time: 03/26/25 09:49 Surgeon: Lambert Saucedo MD Pre Op Diagnosis: Screening Patient Data Age: 49 Gender: M Height: 1.78 m Weight: 76.6 kg Last Vital Signs Temp 36.1 C L 03/26/25 09:30 Pulse 59 L 03/26/25 09:30 Resp 20 03/26/25 09:30 BP 108/56 L 03/26/25 09:30 Pulse Ox 100 03/26/25 09:30 O2 Del Method Room Air 03/26/25 09:30 Allergies Allergy/AdvReac Type Severity Reaction Status Date / Time No Known Allergies Allergy Verified 03/26/25 09:29 Home Medications ?Medication ?Instructions ?Recorded ?Confirmed ?Type alprazolam 1 mg tablet 1 mg PO QID PRN anxiety 02/1503/13/25 History cefadroxil 500 mg capsule 500 mg PO Q12H 03/13/2503/17 History Patient hx anesthesia problems: none Family hx anesthesia problems: none Results Review: All pre-operative results and documents have been reviewed as part of the pre- operative evaluation. [facility] Social History Social History Smoking status: Never smoker Substance use type: does not use Living arrangements: with family Additional living arrangements comments: with sp Anes - Eval Final PreProcedure Day of Procedure 03/26/25 09:49 Patient weight: normal Heart: regular rate and rhythm Lungs: clear to auscultation Airway: Mallampati scale class II Neurological: alert and oriented Last oral intake: >/= 8 hours ASA classification: I Emergent: no Anesthetic plan: proceed Anesthesia type and monitoring: general GIVS and standard monitoring Results Review: All pre-operative results and documents have been reviewed as part of the pre- operative evaluation. Informed Consent: The patient's anesthetic plan and its attendant risks and benefits were discussed with the patient/family/POA. Questions were solicited and answers provided to the satisfaction of the patient/family/POA.
--- NOTE | 2025-03-26 09:54 | PM.HPGS ---
History of Present Illness History of Present Illness Consent: Risks, benefits, and alternatives have been discussed and questions answered. Patient agrees to proceed with procedure. Chief complaint: Screening Narrative: Ke Mcgarry is a 49 year old male here for first screening colonoscopy Review of Systems Review of Systems: All systems reviewed & are unremarkable except as noted in HPI and below PMFSH Past Medical History Medical History (Updated 03/26/25 @ 09:54 by Lambert Saucedo MD) Colon cancer screening Social History Social History Smoking status: Never smoker Substance use type: does not use Living arrangements: with family Additional living arrangements comments: with sp Meds Home Medications and Allergies Home Medications ?Medication ?Instructions ?Recorded ?Confirmed ?Type alprazolam 1 mg tablet 1 mg PO QID PRN anxiety 03/13/25 03/13/25 History cefadroxil 500 mg capsule 500 mg PO Q12H 03/13/25 03/26/25 History Allergies Allergy/AdvReac Type Severity Reaction Status Date / Time No Known Allergies Allergy Verified 03/26/25 09:29 Vital Signs Vital Signs - 24 hr 03/26/25 09:30 Temperature 96.9 F L Pulse Rate 59 L Respiratory Rate 20 Blood Pressure 108/56 L Pulse Oximetry 100 Oxygen Delivery Room Air Exam Const: General: comfortable and no acute distress HENMT: Face/Nose/Sinus: Normal nares present Eyes: General: appearance normal, both eyes and all related structures Neck: Neck: no JVD Resp: Auscultation: clear to auscultation bilaterally Cardio: Rate: regular rate Rhythm: regular rhythm GI: Inspection: non-distended GI Palp: Yes Soft to palpation Skin: General skin exam: normal color Extrem: General: normal to inspection Psych: Mental Status: mental status grossly normal Assessment and Plan Assessment and plan (1) Colon cancer screening: Code(s): Z12.11 - Encounter for screening for malignant neoplasm of colon Status: Acute Assessment and Plan: colonoscopy
[2025-03-26 10:07] VITALS: BP 79/46; PULSE 55; RESP 16; O2SAT 99
[2025-03-26 10:17] VITALS: BP 94/51; PULSE 63; RESP 17; O2SAT 100
[2025-03-26 10:27] VITALS: BP 110/72; PULSE 58; RESP 19; O2SAT 100
== END 2025-03-26 10:37 | disposition home or self-care (01) ==
PROVIDERS: PCP Internal Medicine; Referring Provider Internal Medicine; Visit Provider Internal Medicine Gastroenterology
PROC: 0DJD8ZZ Inspection of Lower Intestinal Tract, Via Natural or Artificial Opening Endoscopic (ICD-10-PCS; CPT 45378; principal; 2025-03-26 10:30)
DX: Z12.11 Encounter for screening for malignant neoplasm of colon (principal); K64.8 Other hemorrhoids
CPT/HCPCS: 45378; J2704; J7120